=== PATIENT | male | born 1940 | race Caucasian/White ===

== ENCOUNTER 2023-06-02 08:46 | Inpatient (IN) ==
--- NOTE | 2023-06-02 08:56 | EKG ---
Test Reason : dyspnea Blood Pressure : */* mmHG Vent. Rate : 67 BPM Atrial Rate : * BPM P-R Int : * ms QRS Dur : 98 ms QT Int : 440 ms P-R-T Axes : * 15 233 degrees QTc Int : 464 ms Atrial fibrillation with occasional ventricular-paced complexes Prolonged QT Abnormal ECG No previous ECGs available Confirmed by Lawson Mcdermott ([id number]) on 06/02/2023 11:43:33 AM Referred By: Confirmed By: Lawson Mcdermott
[2023-06-02 09:18] VITALS: BMI 31.5
[2023-06-02 09:45] LABS: BILIRUBIN,URINE NEGATIVE (NEGATIVE); BLOOD/HEMOGLOBIN,URINE 1+ (NEGATIVE); GLUCOSE, URINE 2+ (NEGATIVE); KETONES,URINE NEGATIVE (NEGATIVE); LEUKOCYTE ESTERASE ,URINE NEGATIVE (NEGATIVE); NITRITES,URINE NEGATIVE (NEGATIVE); PROTEIN,URINE 1+ (NEGATIVE); UROBILINOGEN,URINE NORMAL (NORMAL)
[2023-06-02 09:57] LABS: APPEARANCE,URINE CLEAR (CLEAR); COLOR,URINE YELLOW (YELLOW)
[2023-06-02 09:58] LABS: RBC,URINE 0-2 /HPF (0-3)
[2023-06-02 09:59] LABS: BACTERIA,URINE NEGATIVE /HPF (NEGATIVE); SQUAMOUS EPITHELIAL CELL,UR RARE /HPF (NEGATIVE)
[2023-06-02 10:36] LABS: BASOPHILS % (AUTO) 0.5 % (0.2-1.0); EOSINOPHILS # (AUTO) 0.2 x10^3/uL (0.0-0.2); EOSINOPHILS % (AUTO) 2.9 % (0.9-2.9); HEMOGLOBIN 11.1 g/dL (13.5-18.0); LYMPHOCYTES # (AUTO) 0.9 X10^3/uL (1.3-2.9); LYMPHOCYTES % (AUTO) 11.6 % (21.0-51.0); MEAN CORPUSCULAR HEMOGLOBIN 30.8 pg (27.0-34.0); MEAN CORPUSCULAR HGB CONC 33.7 g/dL (33.0-35.0); MEAN CORPUSCULAR VOLUME 91.3 fL (80.0-100.0); MEAN PLATELET VOLUME 9.3 fL (7.4-11.0); MONOCYTES # (AUTO) 0.9 x10^3/uL (0.3-0.8); MONOCYTES % (AUTO) 11.6 % (0.0-13.0); NEUTROPHILS # (AUTO) 5.8 x10^3/uL (2.2-4.8); NEUTROPHILS % (AUTO) 73.4 % (42.0-75.0); PLATELET COUNT 113 X10^3/uL (150.0-450.0); RED BLOOD COUNT 3.61 X10^6/uL (4.7-6.0); RED CELL DISTRIBUTION WIDTH 14.6 % (11.6-16.5); WHITE BLOOD COUNT 7.9 X10^3/uL (3.6-10.0)
--- NOTE | 2023-06-02 10:43 | DR.AMS ---
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 Pt having increased incidents of falling, wheezing, coughing more but has been treated with breathing tx at home. Diarrhea started this AM around 0, pt states he feels weak No c/o CP, other pain, n/v Self Treatment fo Chief Complaint: these isssues started on Friday morning. Pt eating and drinking adequately per pt report COVID-19 Coronavirus risk:travel/contact w/high risk person: No Has patient experienced Coronavirus symptoms: Yes Coronavirus symptoms experienced: Coughing and Shortness of Breath Source History Provided: Patient, Family Member and EMS Mode of Arrival Mode of Arrival: EMS Timing Onset of Chief Complaint: 06/01/23 PMH PMH Past Medical History: Yes Past Medical History: Coronary Artery Disease, Diabetes, Dyslipidemia, Hypertens ion, Hypothyroidism, [place] and Renal Disease Past Medical History Comment: Sheila Past Surgical History: Yes Surgical History: CABG/Valve Surgery and Cholecystectomy Past Surgical History Comment: pacemaker/defib Family History History of Family Medical Conditions: Yes Family Medical History: [place], Coronary Artery Disease and Hypertension Social History Does patient currently use any type of tobacco product: No Have you used tobacco products in the last 12 months: No Type of Tobacco Use: None Does any household member use tobacco: No Alcohol Use: None Do you use any recreational Drugs:: No Lives With: Spouse Lives Where: Home Travel Risk Coronavirus risk:travel/contact w/high risk person: No Has patient experienced Coronavirus symptoms: Yes Coronavirus symptoms experienced: Coughing and Shortness of Breath Infectious screening In the last 2 months have you had wt loss of >10#?: NO Have you had fever, night sweats or hemotysis?: No Have you traveled outside the country in the last 6 months?: No Isolation: Standard PE Vitals Vital Signs: Temp Pulse Resp BP Pulse Ox O2 Del Method 06/02/23 14:15 69 16 100 06/02/23 14:04 79 16 98 06/02/23 13:45 68 21 99 06/02/23 13:31 169/76 06/02/23 13:31 169/76 06/02/23 13:31 169/76 06/02/23 13:31 68 25 H 99 06/02/23 13:30 68 21 99 06/02/23 13:15 68 24 99 06/02/23 13:01 71 19 98 06/02/23 13:01 161/76 06/02/23 13:00 71 19 98 06/02/23 12:45 68 14 99 06/02/23 12:31 69 17 99 06/02/23 12:31 177/81 06/02/23 12:30 69 19 99 06/02/23 12:15 68 20 06/02/23 12:03 69 26 H 98 06/02/23 12:03 194/92 06/02/23 12:00 71 21 99 06/02/23 11:45 68 16 100 06/02/23 11:31 68 26 H 100 06/02/23 11:31 166/79 06/02/23 11:30 69 20 97 06/02/23 11:16 68 21 98 06/02/23 11:16 192/66 06/02/23 11:15 69 18 98 06/02/23 11:01 68 19 100 06/02/23 11:00 68 16 100 06/02/23 10:45 68 19 97 06/02/23 10:32 68 13 98 06/02/23 10:31 166/78 06/02/23 10:31 166/78 06/02/23 10:29 68 14 98 06/02/23 10:15 68 19 99 06/02/23 10:01 69 18 100 06/02/23 10:01 189/82 06/02/23 10:00 69 22 99 06/02/23 09:45 68 25 H 98 06/02/23 09:35 67 27 H 97 06/02/23 09:35 176/79 06/02/23 09:30 67 20 99 06/02/23 09:15 67 26 H 97 06/02/23 09:12 68 23 98 06/02/23 08:47 98.7 F 78 19 151/77 98 Room Air ROR Labs Reviewed 06/02/23 09:10 06/02/23 09:10 Laboratory: WBC 7.9 X10^3/uL (3.6-10.0) 06/02/23 09:10 RBC 3.61 X10^6/uL (4.7-6.0) L 06/02/23 09:10 Hgb 11.1 g/dL (13.5-18.0) L 06/02/23 09:10 Hct 33.0 % (42.0-54.0) L 06/02/23 09:10 MCV 91.3 fL (80.0-100.0) 06/02/23 09:10 MCH 30.8 pg (27.0-34.0) 06/02/23 09:10 MCHC 33.7 g/dL (33.0-35.0) 06/02/23 09:10 RDW 14.6 % (11.6-16.5) 06/02/23 09:10 Plt Count 113 X10^3/uL (150.0-450.0) L 06/02/23 09:10 MPV 9.3 fL (7.4-11.0) 06/02/23 09:10 Neut % (Auto) 73.4 % (42.0-75.0) 06/02/23 09:10 Lymph % (Auto) 11.6 % (21.0-51.0) L 06/02/23 09:10 [place] % (Auto) 11.6 % (0.0-13.0) 06/02/23 09:10 Eos % (Auto) 2.9 % (0.9-2.9) 06/02/23 09:10 Baso % (Auto) 0.5 % (0.2-1.0) 06/02/23 09:10 Neut # (Auto) 5.8 x10^3/uL (2.2-4.8) H 06/02/23 09:10 Lymph # (Auto) 0.9 X10^3/uL (1.3-2.9) L 06/02/23 09:10 [place] # (Auto) 0.9 x10^3/uL (0.3-0.8) H 06/02/23 09:10 Eos # (Auto) 0.2 x10^3/uL (0.0-0.2) 06/02/23 09:10 Baso # (Auto) 0.0 X10^3/uL (0.0-0.1) 06/02/23 09:10 Absolute Nucleated RBC 0.1 /100WBC 06/02/23 09:10 Sodium 136 mmol/L (136-145) 06/02/23 09:10 Corrected Sodium 139 mmol/L (136-145) 06/02/23 09:10 Potassium 3.9 mmol/L (3.5-5.1) 06/02/23 09:10 Chloride 99 mmol/L (98-107) 06/02/23 09:10 Carbon Dioxide 31.5 mmol/L (21-32) 06/02/23 09:10 BUN 21 mg/dL (7-18) H 06/02/23 09:10 Creatinine 1.50 mg/dL (0.70-1.30) H 06/02/23 09:10 Est GFR (MDRD) Af Amer 57 (>60) L 06/02/23 09:10 Est GFR (MDRD) Non-Af 47 (>60) L 06/02/23 09:10 Glucose 213 mg/dL (65-99) H 06/02/23 09:10 Calcium 7.8 mg/dL (8.5-10.1) L 06/02/23 09:10 Corrected Calcium TNP 06/02/23 09:10 Total Bilirubin 0.60 mg/dL (0.2-1.0) 06/02/23 09:10 AST 31 Units/L (15-37) 06/02/23 09:10 ALT 25 Units/L (12-78) 06/02/23 09:10 Alkaline Phosphatase 86 Units/L (46-116) 06/02/23 09:10 Creatine Kinase 425 Units/L (39-308) H 06/02/23 09:10 Troponin I High Sens 52.5 ng/L (4.0-60.0) 06/02/23 12:00 B-Natriuretic Peptide 702 pg/mL (0-79) H 06/02/23 09:10 Total Protein 6.4 g/dL (6.4-8.2) 06/02/23 09:10 Albumin 3.4 g/dL (3.4-5.0) 06/02/23 09:10 Globulin 3.0 g/dL (2.5-4.5) 06/02/23 09:10 Albumin/Globulin Ratio 1.1 Ratio (1.1-2.1) 06/02/23 09:10 Specimen Type Clean catch urine 06/02/23 09:36 Urine Color Yellow (YELLOW) 06/02/23 09:36 Urine Appearance Clear (CLEAR) 06/02/23 09:36 Urine pH 6.0 (5.0 - 8.0) 06/02/23 09:36 Ur Specific [place] 1.010 (1.000-1.030) 06/02/23 09:36 Urine Protein 1+ (NEGATIVE) 06/02/23 09:36 Urine Glucose (UA) 2+ (NEGATIVE) 06/02/23 09:36 Urine Ketones Negative (NEGATIVE) 06/02/23 09:36 Urine Blood 1+ (NEGATIVE) 06/02/23 09:36 Urine Nitrite Negative (NEGATIVE) 06/02/23 09:36 Urine Bilirubin Negative (NEGATIVE) 06/02/23 09:36 Urine Urobilinogen Normal (NORMAL) 06/02/23 09:36 Ur Leukocyte Esterase Negative (NEGATIVE) 06/02/23 09:36 Urine RBC 0-2 /HPF (0-3) 06/02/23 09:36 Urine WBC None seen /HPF (0-5) 06/02/23 09:36 Ur Squamous Epith Cells Rare /HPF (NEGATIVE) 06/02/23 09:36 Urine Bacteria Negative /HPF (NEGATIVE) 06/02/23 09:36 Ur Culture Indicated? No/not indicated 06/02/23 09:36 Opioid Opioid Risk Tool Age (Seven box if 16-45): No History of Preadolescent Sexual Abuse: No Total: 0 Total Score Risk Category: Low Risk Copyright: [employer] predicting aberrant behaviors Discharge Plan Discharge Plan Patient Disposition: 01 HOME, SELF-CARE Condition: Stable Orders to Discharge Patient Discharge Orders: Transfer (Routine); Ordered 06/02/23 Ordered By: ETTA SOLORIO
[2023-06-02 11:11] LABS: ALANINE AMINOTRANSFERASE 25 Units/L (12-78); ALBUMIN 3.4 g/dL (3.4-5.0); ALKALINE PHOSPHATASE 86 Units/L (46-116); ASPARTATE AMINO TRANSFERASE 31 Units/L (15-37); BLOOD UREA NITROGEN 21 mg/dL (7-18); CALCIUM 7.8 mg/dL (8.5-10.1); CARBON DIOXIDE 31.5 mmol/L (21-32); CHLORIDE 99 mmol/L (98-107); COR NA(FOR HYPERGLY) 139 mmol/L (136-145); CREATINE KINASE 425 Units/L (39-308); GLUCOSE 213 mg/dL (65-99); POTASSIUM 3.9 mmol/L (3.5-5.1); SODIUM 136 mmol/L (136-145); TOTAL PROTEIN 6.4 g/dL (6.4-8.2); eGFR NON BLACK RACES 47 (>60)
[2023-06-02] MEDS ORDERED: LASIX IVP ONE (13:05)
[2023-06-02] MEDS ORDERED: LASIX ONE (13:46)
--- NOTE | 2023-06-02 13:48 | RAD ---
EXAM:Portable AP chestHISTORY:Short of breathCOMPARISON:Report only no image September 07, 2016FINDINGS:Mild cardiomegaly with sternal wires and AICD. The lungs and pleural spaces are clear. There is no evidence for active inflammatory disease or CHF.IMPRESSION:Cardiac prominence; no acute findings.THIS IS AN ELECTRONICALLY VERIFIED FINAL MNUGUE2206/02/2023 1:35 PM - Electronically signed by Frank Foley MD
--- NOTE | 2023-06-02 13:52 | DR.CONSULT ---
CONSULT Consultation for Day of: Date: 06/02/23 Chief Complaint Chief Complaint: sob/cough/hallucinations/diarrhea Allergies Allergies Allergy/AdvReac Type Severity Reaction Status Date / Time codeine Allergy Verified 06/02/23 09:21 lidocaine Allergy Verified 06/02/23 09:21 History of Present Illness History of Present Illness: 83 yo male- know him well- s/p cabg years ago- has PAFIB ( 50% down to 20% with adding amiodorone per pacer- has watchman as falling/no doca- recent cath last week showed patnet de la o to lad, patent svg to diag, [place] rca/cmflx ok, ef 40-45%- lvedvp 23- he was changed from arb to entresto- 2 days after: fell ( did before), bp high, diarrrhea , sob/cough- no f/c- in er: rhythm: nsr,occ v paced, some af- cxr: no pna- labs: elevated trop but f/u normal- bnp elelvated,cr 1.5, wbc 11k Past Medical History Past Medical History: Coronary Artery Disease, Diabetes, Dyslipidemia, Hyperte nsion, Hypothyroidism, [place] and Renal Disease Past Surgical History Surgical History: CABG/Valve Surgery and Cholecystectomy Family History Family Medical History: [place], Coronary Artery Disease and Hypertension Social History Does patient currently use any type of tobacco product: No Have you used tobacco products in the last 12 months: No Type of Tobacco Use: None Does any household member use tobacco: No Alcohol Use: None Medications Home Medications: codeine Allergy (Verified 06/02/23 09:21) lidocaine Allergy (Verified 06/02/23 09:21) CONTINUE taking the following medications sacubitril 24 mg-valsartan 26 mg tablet (Entresto) 1 tab PO BID 06/02/23 [History] Physical Exam Vital Signs: Vital Signs Temperature 98.7 F Pulse Rate 71 Pulse Rate 71 Pulse Rate 68 Pulse Rate 69 Pulse Rate 69 Pulse Rate 68 Pulse Rate 69 Pulse Rate 71 Pulse Rate 68 Pulse Rate 68 Pulse Rate 69 Pulse Rate 68 Pulse Rate 69 Pulse Rate 68 Pulse Rate 68 Pulse Rate 68 Pulse Rate 68 Pulse Rate 68 Pulse Rate 68 Pulse Rate 69 Pulse Rate 69 Pulse Rate 68 Pulse Rate 67 Pulse Rate 67 Pulse Rate 67 Pulse Rate 68 Pulse Rate 78 Respiratory Rate 19 Respiratory Rate 19 Respiratory Rate 14 Respiratory Rate 17 Respiratory Rate 19 Respiratory Rate 20 Respiratory Rate 26 Respiratory Rate 21 Respiratory Rate 16 Respiratory Rate 26 Respiratory Rate 20 Respiratory Rate 21 Respiratory Rate 18 Respiratory Rate 19 Respiratory Rate 16 Respiratory Rate 19 Respiratory Rate 13 Respiratory Rate 14 Respiratory Rate 19 Respiratory Rate 18 Respiratory Rate 22 Respiratory Rate 25 Respiratory Rate 27 Respiratory Rate 20 Respiratory Rate 26 Respiratory Rate 23 Respiratory Rate 19 Blood Pressure 161/76 Blood Pressure 177/81 Blood Pressure 194/92 Blood Pressure 166/79 Blood Pressure 192/66 Blood Pressure 166/78 Blood Pressure 166/78 Blood Pressure 189/82 Blood Pressure 176/79 Blood Pressure 151/77 O2 Sat by Pulse Oximetry 98 O2 Sat by Pulse Oximetry 98 O2 Sat by Pulse Oximetry 99 O2 Sat by Pulse Oximetry 99 O2 Sat by Pulse Oximetry 99 O2 Sat by Pulse Oximetry 98 O2 Sat by Pulse Oximetry 99 O2 Sat by Pulse Oximetry 100 O2 Sat by Pulse Oximetry 100 O2 Sat by Pulse Oximetry 97 O2 Sat by Pulse Oximetry 98 O2 Sat by Pulse Oximetry 98 O2 Sat by Pulse Oximetry 100 O2 Sat by Pulse Oximetry 100 O2 Sat by Pulse Oximetry 97 O2 Sat by Pulse Oximetry 98 O2 Sat by Pulse Oximetry 98 O2 Sat by Pulse Oximetry 99 O2 Sat by Pulse Oximetry 100 O2 Sat by Pulse Oximetry 99 O2 Sat by Pulse Oximetry 98 O2 Sat by Pulse Oximetry 97 O2 Sat by Pulse Oximetry 99 O2 Sat by Pulse Oximetry 97 O2 Sat by Pulse Oximetry 98 O2 Sat by Pulse Oximetry 98 alert cough mild sob elevated jvd, lungs: b rhonchi/rales, 1-2 plus edema Plan (1) Atrial fibrillation: Status: None Narrative Support Text: cont amio- no doac as has watchman (2) CAD (coronary artery disease): Status: None Narrative Support Text: cath last week with good revascularization (3) Essential hypertension: Status: None Narrative Support Text: contributing to chf- will try to continue entresto to maybe in push it if he gets better when out of chf (4) CHF (congestive heart failure): Status: Acute Narrative Support Text: ? if cath/dye tipped him over Plan: iv lasix in er- resume current meds ( coreg/entresto/etc) (5) Hallucinations: Status: Acute Narrative Support Text: ? related to sedation from cath- r/o infection
--- NOTE | 2023-06-02 14:56 | CT ---
EXAM:BRAIN W/O CONHISTORY:AMS RECENT FALL;COMPARISON:None available.TECHNIQUE:Multiple axial images of the brain were obtained from the skull base to the vertex without administration of IV contrast. Dose reduction techniques including Automated Exposure Control (AEC) and adjustment of mA and kV were utilized.FINDINGS:No acute intraparenchymal hemorrhage or mass can be identified. No extra-axial fluid collections are seen. No alteration in the attenuation of the brain parenchyma can be identified to suggest acute or subacute ischemic change. Scattered small-vessel ischemic changes and chronic area area of encephalomalacia noted in the right frontoparietal lobe. Age-appropriate atrophic changes are also seen. The ventricular system is symmetric and nondilated. The extracranial structures appear unremarkable.IMPRESSION:1. No acute intracranial process can be identified.THIS IS AN ELECTRONICALLY VERIFIED FINAL FEBFVE3706/02/2023 2:52 PM - Electronically signed by Kaiden Raymundo MD
[2023-06-02 17:19] LABS: CALCIUM 8.3 mg/dL (8.5-10.1); CREATININE 1.46 mg/dL (0.70-1.30)
[2023-06-02 18:20] LABS: ABG BASE EXCESS 8.7 mmol/L (-2.0-2.0)
[2023-06-02 18:21] LABS: ABG ALLEN TEST POS; ABG HCO3 32.8 mmol/L (22-26)
[2023-06-02] MEDS: ENTRESTO 24/26 MG TABLET PO SCH (20:29)
[2023-06-02] MEDS: ZOCOR TAB 20 MG PO SCH (20:29)
[2023-06-03 05:36] LABS: BASOPHILS % (AUTO) 0.4 % (0.2-1.0); EOSINOPHILS # (AUTO) 0.3 x10^3/uL (0.0-0.2); EOSINOPHILS % (AUTO) 3.9 % (0.9-2.9); HEMATOCRIT 36.2 % (42.0-54.0); LYMPHOCYTES # (AUTO) 1.2 X10^3/uL (1.3-2.9); LYMPHOCYTES % (AUTO) 13.6 % (21.0-51.0); MEAN CORPUSCULAR HEMOGLOBIN 30.3 pg (27.0-34.0); MEAN CORPUSCULAR HGB CONC 33.1 g/dL (33.0-35.0); MEAN CORPUSCULAR VOLUME 91.6 fL (80.0-100.0); MONOCYTES # (AUTO) 1.1 x10^3/uL (0.3-0.8); MONOCYTES % (AUTO) 12.2 % (0.0-13.0); NEUTROPHILS # (AUTO) 6.2 x10^3/uL (2.2-4.8); NEUTROPHILS % (AUTO) 69.9 % (42.0-75.0); PLATELET COUNT 143 X10^3/uL (150.0-450.0); RED BLOOD COUNT 3.95 X10^6/uL (4.7-6.0); RED CELL DISTRIBUTION WIDTH 14.7 % (11.6-16.5); WHITE BLOOD COUNT 8.9 X10^3/uL (3.6-10.0)
[2023-06-03 05:45] LABS: ALANINE AMINOTRANSFERASE 27 Units/L (12-78); ALBUMIN 3.4 g/dL (3.4-5.0); ALKALINE PHOSPHATASE 89 Units/L (46-116); ASPARTATE AMINO TRANSFERASE 30 Units/L (15-37); BLOOD UREA NITROGEN 18 mg/dL (7-18); CALCIUM 8.3 mg/dL (8.5-10.1); CARBON DIOXIDE 31.1 mmol/L (21-32); CHLORIDE 100 mmol/L (98-107); COR NA(FOR HYPERGLY) 143 mmol/L (136-145); CREATININE 1.47 mg/dL (0.70-1.30); GLUCOSE 235 mg/dL (65-99); POTASSIUM 3.4 mmol/L (3.5-5.1); SODIUM 140 mmol/L (136-145); TOTAL PROTEIN 6.4 g/dL (6.4-8.2); eGFR NON BLACK RACES 48 (>60)
[2023-06-03] MEDS: SYNTHROID 100 mcg TAB PO SCH (05:50)
[2023-06-03] MEDS ORDERED: CONSULT PHARMACY - POTASSIUM & MAGNESIUM XX SCH (07:00)
--- NOTE | 2023-06-03 07:31 | RAD ---
EXAM:CHEST, 1 VIEWHISTORY:CHF EXACERBATION ;COMPARISON:06/02/2023.TECHNIQUE:AP view of the chestFINDINGS:Left chest wall pacemaker with leads in good position. Post median sternotomy and CABG. Cardiac silhouette is mildly enlarged. Mediastinal contours appear normal. No consolidation or segmental lung collapse. No definite pleural effusion or pneumothorax.IMPRESSION:Mild cardiomegaly. No acute pulmonary process.THIS IS AN ELECTRONICALLY VERIFIED FINAL OCCFKA5606/03/2023 7:28 AM - Electronically signed by Daniel Sanches MD
--- NOTE | 2023-06-03 08:07 | NOTE.SOAP ---
Soap Note Note for Day of Date of Exam: 06/03/23 Subjective Data Subjective Data: just woke up- states breathing ok- was on metoprolol succ 100 qd- will hold until wheezing gone! Objective Data Objective Data: p68 bp 134/67 no fevers i/o: -1000 can hear wheezing lungs: few rales/exp wheeze edema: improved k3.4 getting K\ getting nebs too Assessment Assessment: chf/wheezing/low K Plan Plan: lasix iv again- K supplementation/ cont resp tx/ hold bb until wheezing resolved
[2023-06-03] MEDS ORDERED: K-DUR TAB 20 MEQ PO SCH (09:00)
[2023-06-03] MEDS ORDERED: JANUVIA PO SCH (09:00)
[2023-06-03] MEDS ORDERED: LASIX IVP ONE (09:00)
[2023-06-03] MEDS: PROVENTIL NEB TX 0.083% 2.5MG/ 3ML NEB PRN ×2 (09:26→13:44)
[2023-06-03] MEDS: ASPIRIN EC 81 MG PO SCH (10:07)
[2023-06-03] MEDS: FLOMAX PO SCH (10:07)
[2023-06-03] MEDS: ENTRESTO 24/26 MG TABLET PO SCH ×2 (10:08→21:16)
[2023-06-03] MEDS: LOVENOX INJ 40 MG SYR SC SCH (10:09)
[2023-06-03] MEDS: CORDARONE TAB 200 MG PO SCH (10:23)
[2023-06-03] MEDS: NovoLIN R (or HumuLIN R) SUBCUT PRN ×2 (12:43→21:19)
[2023-06-03] MEDS: ROCEPHIN VIAL 1 GRAM 1 G in NS 100 ML IV 100 ML IV SCH (14:26)
[2023-06-03] MEDS: ROBITUSSIN DM PO SCH ×2 (16:32→21:17)
[2023-06-03] MEDS: PROVENTIL NEB TX 0.083% 2.5MG/ 3ML NEB SCH ×2 (17:49→20:05)
[2023-06-03] MEDS: ZOCOR TAB 20 MG PO SCH (21:17)
[2023-06-04] MEDS: SYNTHROID 100 mcg TAB PO SCH (05:31)
[2023-06-04] MEDS: NovoLIN R (or HumuLIN R) SUBCUT PRN ×4 (05:34→20:44)
[2023-06-04 05:43] LABS: BASOPHILS % (AUTO) 0.5 % (0.2-1.0); EOSINOPHILS # (AUTO) 0.1 x10^3/uL (0.0-0.2); EOSINOPHILS % (AUTO) 0.6 % (0.9-2.9); HEMATOCRIT 32.3 % (42.0-54.0); HEMOGLOBIN 10.8 g/dL (13.5-18.0); LYMPHOCYTES # (AUTO) 1.1 X10^3/uL (1.3-2.9); LYMPHOCYTES % (AUTO) 12.3 % (21.0-51.0); MEAN CORPUSCULAR HEMOGLOBIN 30.6 pg (27.0-34.0); MEAN CORPUSCULAR HGB CONC 33.3 g/dL (33.0-35.0); MEAN CORPUSCULAR VOLUME 91.8 fL (80.0-100.0); MEAN PLATELET VOLUME 8.6 fL (7.4-11.0); MONOCYTES % (AUTO) 11.5 % (0.0-13.0); NEUTROPHILS # (AUTO) 6.7 x10^3/uL (2.2-4.8); NEUTROPHILS % (AUTO) 75.1 % (42.0-75.0); PLATELET COUNT 134 X10^3/uL (150.0-450.0); RED BLOOD COUNT 3.52 X10^6/uL (4.7-6.0); RED CELL DISTRIBUTION WIDTH 14.5 % (11.6-16.5); WHITE BLOOD COUNT 8.9 X10^3/uL (3.6-10.0)
[2023-06-04 05:57] LABS: CALCIUM 7.9 mg/dL (8.5-10.1); CARBON DIOXIDE 31.3 mmol/L (21-32); COR CA(FOR HYPOALB) 8.7 mg/dL (8.5-10.1); CREATININE 2.47 mg/dL (0.70-1.30); POTASSIUM 3.5 mmol/L (3.5-5.1); TOTAL PROTEIN 5.7 g/dL (6.4-8.2)
[2023-06-04] MEDS ORDERED: CONSULT PHARMACY - POTASSIUM & MAGNESIUM XX SCH (07:00)
--- NOTE | 2023-06-04 08:14 | RAD ---
EXAM:Portable AP chestHISTORY:CHF wheezingCOMPARISON:June 03, 2023FINDINGS:Heart size is unchanged with AICD. The lungs and pleural spaces are clear of active process. There is no evidence for developing pneumonia, CHF/edema or pleural effusion.IMPRESSION:No change.THIS IS AN ELECTRONICALLY VERIFIED FINAL [id number]/04/2023 8:12 AM - Electronically signed by Frank Foley MD
[2023-06-04] MEDS ORDERED: MICRO K EXTEN CAP 10 MEQ PO SCH (09:00)
[2023-06-04] MEDS: PROVENTIL NEB TX 0.083% 2.5MG/ 3ML NEB SCH ×4 (09:03→21:25)
[2023-06-04] MEDS: ROCEPHIN VIAL 1 GRAM 1 G in NS 100 ML IV 100 ML IV SCH (09:38)
[2023-06-04] MEDS: ROBITUSSIN DM PO SCH ×4 (09:42→21:12)
[2023-06-04] MEDS: FLOMAX PO SCH (09:42)
[2023-06-04] MEDS: ASPIRIN EC 81 MG PO SCH (09:43)
[2023-06-04] MEDS: JANUVIA PO SCH (09:44)
[2023-06-04] MEDS: MAG-OX TAB PO SCH (09:45)
[2023-06-04] MEDS: LOVENOX INJ 40 MG SYR SC SCH (09:46)
[2023-06-04] MEDS ORDERED: SOLU-Medrol 40 MG VIAL IVP ONE (09:47)
[2023-06-04] MEDS: CORDARONE TAB 200 MG PO SCH (10:33)
[2023-06-04] MEDS: ENTRESTO 24/26 MG TABLET PO SCH ×3 (11:02→20:24)
[2023-06-04] MEDS: NS 1,000 ML IV 1,000 ML IV SCH (11:04)
--- NOTE | 2023-06-04 13:29 | NOTE.SOAP ---
Soap Note Note for Day of Date of Exam: 06/04/23 Subjective Data Subjective Data: sob/wheezing improving Objective Data Objective Data: [id number] p 86 i/o -1600 lungs- sound much better/minimal wheeze edema:minimal CR 1.47 to 2.47 with diuresis ( no lasix today) Assessment Assessment: bronchitis/ chf/ now bump in creatinine with diureisis Plan Plan: antibiotics/nebs- if cr stable or improved in am- ok to go and i will see friday- no more iv lasix for now- cont entresto and resume bb in am if minimal wheezing
[2023-06-04] MEDS: ZOCOR TAB 20 MG PO SCH (20:24)
[2023-06-05] MEDS: NS 1,000 ML IV 1,000 ML IV SCH ×2 (05:24→13:48)
[2023-06-05] MEDS: NovoLIN R (or HumuLIN R) SUBCUT PRN ×3 (06:04→21:02)
[2023-06-05] MEDS: SYNTHROID 100 mcg TAB PO SCH (06:04)
[2023-06-05 06:06] LABS: BASOPHILS % (AUTO) 0.2 % (0.2-1.0); EOSINOPHILS % (AUTO) 0.1 % (0.9-2.9); HEMATOCRIT 33.8 % (42.0-54.0); HEMOGLOBIN 11.2 g/dL (13.5-18.0); LYMPHOCYTES # (AUTO) 0.6 X10^3/uL (1.3-2.9); LYMPHOCYTES % (AUTO) 5.9 % (21.0-51.0); MEAN CORPUSCULAR HEMOGLOBIN 30.2 pg (27.0-34.0); MEAN CORPUSCULAR HGB CONC 33.3 g/dL (33.0-35.0); MEAN CORPUSCULAR VOLUME 90.8 fL (80.0-100.0); MEAN PLATELET VOLUME 8.7 fL (7.4-11.0); MONOCYTES # (AUTO) 0.5 x10^3/uL (0.3-0.8); MONOCYTES % (AUTO) 4.9 % (0.0-13.0); NEUTROPHILS # (AUTO) 9.5 x10^3/uL (2.2-4.8); NEUTROPHILS % (AUTO) 88.9 % (42.0-75.0); PLATELET COUNT 145 X10^3/uL (150.0-450.0); RED BLOOD COUNT 3.72 X10^6/uL (4.7-6.0); RED CELL DISTRIBUTION WIDTH 14.6 % (11.6-16.5); WHITE BLOOD COUNT 10.7 X10^3/uL (3.6-10.0)
--- NOTE | 2023-06-05 06:17 | RAD ---
EXAM:Portable AP chestHISTORY:CHF cough wheezeCOMPARISON:June 04, 2023FINDINGS:Mild stable cardiomegaly with sternal wires and pacing device. No definite pulmonary infiltrate, edema, atelectasis or pleural fluid. Appearance of the pulmonary vasculature does not suggest significant CHF.IMPRESSION:No change.THIS IS AN ELECTRONICALLY VERIFIED FINAL TWSDFI2006/05/2023 6:13 AM - Electronically signed by Frank Foley MD
[2023-06-05 06:19] LABS: ALBUMIN 3.2 g/dL (3.4-5.0); CALCIUM 8.6 mg/dL (8.5-10.1); CARBON DIOXIDE 28.5 mmol/L (21-32); COR CA(FOR HYPOALB) 9.2 mg/dL (8.5-10.1); CREATININE 1.74 mg/dL (0.70-1.30); MAGNESIUM 2.1 mg/dL (2.0-2.9); POTASSIUM 3.8 mmol/L (3.5-5.1); TOTAL PROTEIN 6.2 g/dL (6.4-8.2)
[2023-06-05] MEDS ORDERED: CONSULT PHARMACY - POTASSIUM & MAGNESIUM XX SCH (07:00)
[2023-06-05] MEDS: PROVENTIL NEB TX 0.083% 2.5MG/ 3ML NEB SCH (08:12)
[2023-06-05] MEDS ORDERED: TOPROL XL PO ONE (08:12)
[2023-06-05] MEDS ORDERED: TOPROL XL PO SCH (09:00)
[2023-06-05] MEDS ORDERED: MICRO K EXTEN CAP 10 MEQ PO SCH (09:00)
[2023-06-05] MEDS: ROBITUSSIN DM PO SCH ×4 (09:39→20:14)
[2023-06-05] MEDS: ROCEPHIN VIAL 1 GRAM 1 G in NS 100 ML IV 100 ML IV SCH (09:39)
[2023-06-05] MEDS: LOVENOX INJ 40 MG SYR SC SCH (09:39)
[2023-06-05] MEDS: ENTRESTO 24/26 MG TABLET PO SCH ×2 (09:40→20:15)
[2023-06-05] MEDS: JANUVIA PO SCH (09:40)
[2023-06-05] MEDS: CORDARONE TAB 200 MG PO SCH (09:40)
[2023-06-05] MEDS: FLOMAX PO SCH (09:40)
[2023-06-05] MEDS: ASPIRIN EC 81 MG PO SCH (09:40)
[2023-06-05 10:14] VITALS: RESP 20
[2023-06-05] MEDS ORDERED: MAG-OX TAB ONE (10:33)
[2023-06-05] MEDS: MAG-OX TAB PO SCH (10:37)
--- NOTE | 2023-06-05 10:59 | PCM.PROG ---
Progress Note Progress Note for Day of Date of Exam: 06/05/23 Subjective Subjective: Patient seen at bedside, no acute events overnight. He states he feels slightly better. He still has a lot of cough and some dyspnea on exertion. He is currently being treated for bronchitis/CHF exacerbation and SHAREE. Cardiology has also been following. His lasix was stopped due to worsening renal function. His Cr has improved today. Labs/imaging reviewed -Hgb 11.2 BUN/Cr 26/1.74 Glucose 322 BNP 646 -Blood Cx: neg -CXR: no acute changes Plan: Continue IV Rocephin, add Doxycyline. Continue to hold lasix and BB. Change to duonebs and pulmicort. Add prednisone 40 mg daily. Start Lantus 10 units daily. Continue SSI and other home medications. Hold nephrotoxic medications. IS as tolerated. Monitor AM labs/imaging. Past Medical Family Social History Allergies: Allergies codeine Allergy (Verified 06/02/23 09:21) lidocaine Allergy (Verified 06/02/23 09:21) Vital Signs and I&O's Vital Signs: Vital Signs Temperature 98.3 F Temperature 98.3 F Pulse Rate [Brachial] 94 Pulse Rate [Brachial] 83 Pulse Rate 83 Respiratory Rate 20 Respiratory Rate 18 Blood Pressure [Right Arm] 115/79 Blood Pressure [Right Arm] 158/65 O2 Sat by Pulse Oximetry 97 O2 Sat by Pulse Oximetry 94 O2 Sat by Pulse Oximetry 96 Intake and Output: Intake & Output 06/02/23 06/03/23 06/04/23 06/05/23 23:59 23:59 23:59 23:59 Intake Total 50 / 50 962 / 962 1370 / 1370 535 / 535 Output Total 1080 / 1080 1400 / 1400 725 / 725 Balance -1030 / -1030 -438 / -438 645 / 645 535 / 535 Physical Exam Oriented: Normal Throat: Normal Respiratory: Wheezes and Rhonchi Cardiovascular: Normal Auscultation: Bowel Sounds: Normal Palpation: Normal Tenderness: Normal Skin: Normal Musculoskeletal: Normal Psychiatric: Normal Mood Description: Calm Affect: Normal Speech Pattern: Clear Laboratory and Diagnostics 06/05/23 05:27 06/05/23 05:27 Labs: 06/02/23 18:26 Blood Blood Culture - Preliminary 06/02/23 18:20 Blood Blood Culture - Preliminary 06/02/23 20:38 Urine,Clean Catch Urine Culture - Final Laboratory WBC 10.7 X10^3/uL (3.6-10.0) H 06/05/23 05:27 RBC 3.72 X10^6/uL (4.7-6.0) L 06/05/23 05:27 Hgb 11.2 g/dL (13.5-18.0) L 06/05/23 05:27 Hct 33.8 % (42.0-54.0) L 06/05/23 05:27 MCV 90.8 fL (80.0-100.0) 06/05/23 05:27 MCH 30.2 pg (27.0-34.0) 06/05/23 05:27 MCHC 33.3 g/dL (33.0-35.0) 06/05/23 05:27 RDW 14.6 % (11.6-16.5) 06/05/23 05:27 Plt Count 145 X10^3/uL (150.0-450.0) L 06/05/23 05:27 MPV 8.7 fL (7.4-11.0) 06/05/23 05:27 Neut % (Auto) 88.9 % (42.0-75.0) H 06/05/23 05:27 Lymph % (Auto) 5.9 % (21.0-51.0) L 06/05/23 05:27 [place] % (Auto) 4.9 % (0.0-13.0) 06/05/23 05:27 Eos % (Auto) 0.1 % (0.9-2.9) L 06/05/23 05:27 Baso % (Auto) 0.2 % (0.2-1.0) 06/05/23 05:27 Neut # (Auto) 9.5 x10^3/uL (2.2-4.8) H 06/05/23 05:27 Lymph # (Auto) 0.6 X10^3/uL (1.3-2.9) L 06/05/23 05:27 [place] # (Auto) 0.5 x10^3/uL (0.3-0.8) 06/05/23 05:27 Eos # (Auto) 0.0 x10^3/uL (0.0-0.2) 06/05/23 05:27 Baso # (Auto) 0.0 X10^3/uL (0.0-0.1) 06/05/23 05:27 Absolute Nucleated RBC 0.0 /100WBC 06/05/23 05:27 Sample Site Rrad 06/02/23 18:15 ABG pH 7.500 (7.35-7.45) H 06/02/23 18:15 ABG pCO2 42.0 mmHg (35.0-45.0) 06/02/23 18:15 ABG pO2 66.0 mmHg (80.0-100.0) L 06/02/23 18:15 ABG HCO3 32.8 mmol/L (22-26) H* 06/02/23 18:15 ABG O2 Saturation 94.0 % (90-100) 06/02/23 18:15 ABG Base Excess 8.7 mmol/L (-2.0-2.0) H 06/02/23 18:15 [place] Test Pos 06/02/23 18:15 A-a Gradient 31.0 mmHg 06/02/23 18:15 FiO2 21.0 06/02/23 18:15 Blood Gas Comments Pt ara well. eb/kg 06/02/23 18:15 Sodium 137 mmol/L (136-145) 06/05/23 05:27 Corrected Sodium 142 mmol/L (136-145) 06/05/23 05:27 Potassium 3.8 mmol/L (3.5-5.1) 06/05/23 05:27 Chloride 99 mmol/L (98-107) 06/05/23 05:27 Carbon Dioxide 28.5 mmol/L (21-32) 06/05/23 05:27 BUN 26 mg/dL (7-18) H 06/05/23 05:27 Creatinine 1.74 mg/dL (0.70-1.30) H 06/05/23 05:27 Est GFR (MDRD) Af Amer 48 (>60) L 06/05/23 05:27 Est GFR (MDRD) Non-Af 40 (>60) L 06/05/23 05:27 Glucose 312 mg/dL (65-99) H 06/05/23 05:27 POC Glucose (mg/dL) 322 mg/dL (65-99) H 06/05/23 05:45 Calcium 8.6 mg/dL (8.5-10.1) 06/05/23 05:27 Corrected Calcium 9.2 mg/dL (8.5-10.1) 06/05/23 05:27 Magnesium 2.1 mg/dL (2.0-2.9) 06/05/23 05:27 Total Bilirubin 0.50 mg/dL (0.2-1.0) 06/05/23 05:27 AST 32 Units/L (15-37) 06/05/23 05:27 ALT 24 Units/L (12-78) 06/05/23 05:27 Alkaline Phosphatase 84 Units/L (46-116) 06/05/23 05:27 Creatine Kinase 425 Units/L (39-308) H 06/02/23 09:10 Troponin I High Sens 52.5 ng/L (4.0-60.0) 06/02/23 12:00 B-Natriuretic Peptide 646 pg/mL (0-79) H 06/05/23 05:27 Total Protein 6.2 g/dL (6.4-8.2) L 06/05/23 05:27 Albumin 3.2 g/dL (3.4-5.0) L 06/05/23 05:27 Globulin 3.0 g/dL (2.5-4.5) 06/05/23 05:27 Albumin/Globulin Ratio 1.1 Ratio (1.1-2.1) 06/05/23 05:27 Specimen Type Clean catch urine 06/02/23 09:36 Urine Color Yellow (YELLOW) 06/02/23 09:36 Urine Appearance Clear (CLEAR) 06/02/23 09:36 Urine pH 6.0 (5.0 - 8.0) 06/02/23 09:36 Ur Specific [place] 1.010 (1.000-1.030) 06/02/23 09:36 Urine Protein 1+ (NEGATIVE) 06/02/23 09:36 Urine Glucose (UA) 2+ (NEGATIVE) 06/02/23 09:36 Urine Ketones Negative (NEGATIVE) 06/02/23 09:36 Urine Blood 1+ (NEGATIVE) 06/02/23 09:36 Urine Nitrite Negative (NEGATIVE) 06/02/23 09:36 Urine Bilirubin Negative (NEGATIVE) 06/02/23 09:36 Urine Urobilinogen Normal (NORMAL) 06/02/23 09:36 Ur Leukocyte Esterase Negative (NEGATIVE) 06/02/23 09:36 Urine RBC 0-2 /HPF (0-3) 06/02/23 09:36 Urine WBC None seen /HPF (0-5) 06/02/23 09:36 Ur Squamous Epith Cells Rare /HPF (NEGATIVE) 06/02/23 09:36 Urine Bacteria Negative /HPF (NEGATIVE) 06/02/23 09:36 Ur Culture Indicated? No/not indicated 06/02/23 09:36 SARS-CoV-2 (PCR) Negative (NEGATIVE) 06/03/23 22:30 Influenza Type A (PCR) Negative (NEGATIVE) 06/03/23 22:30 Influenza Type B (PCR) Negative (NEGATIVE) 06/03/23 22:30 RSV (PCR) Negative (NEGATIVE) 06/03/23 22:30 Plan (1) Bronchitis: Status: Acute (2) Acute on chronic renal failure: Status: Acute Qualifiers: Acute renal failure type: unspecified Chronic kidney disease stage: unspecified stage Qualified Code(s): N17.9 - Acute kidney failure, unspecified; N18.9 - Chronic kidney disease, unspecified (3) Type 2 diabetes mellitus: Status: Acute Qualifiers: Diabetes mellitus complication status: with hyperglycemia Diabetes mellitus mcfp insulin use: with mcfp use Qualified Code(s): E11.65 - Type 2 diabetes mellitus with hyperglycemia; Z79.4 - FPC (current) use of insulin (4) CHF (congestive heart failure): Status: Acute Qualifiers: Heart failure chronicity: acute on chronic Heart failure type: un specified Qualified Code(s): I50.9 - Heart failure, unspecified (5) Atrial fibrillation: Status: None Qualifiers: Atrial fibrillation type: unspecified chronic Qualified Code(s): I48.20 - Chronic atrial fibrillation, unspecified (6) CAD (coronary artery disease): Status: None Qualifiers: Associated angina: without angina Coronary Disease-Associated Artery/Lesion type: bypass graft [place] vs. transplanted heart: [place] heart Qualified Code(s): I25.810 - Atherosclerosis of coronary artery bypass graft(s) without angina pectoris (7) Essential hypertension: Status: None
[2023-06-05] MEDS: PREDNISONE TAB 20 MG PO SCH (11:05)
[2023-06-05] MEDS: LANTUS SC SCH (11:06)
[2023-06-05] MEDS: VIBRAMYCIN PO SCH ×2 (11:19→20:15)
[2023-06-05] MEDS: PULMICORT NEB TX 0.5 MG NEB SCH ×2 (12:09→21:15)
[2023-06-05] MEDS: DUONEB 0.5 MG/3 MG (3 mL) NEB SCH ×3 (12:19→21:15)
[2023-06-05] MEDS: MILK OF MAGNESIA PO SCH (16:11)
[2023-06-05] MEDS ORDERED: SNACK - Diabetic Appropriate PO SCH (20:00)
[2023-06-05] MEDS: ZOCOR TAB 20 MG PO SCH (20:16)
[2023-06-05] MEDS ORDERED: COLACE CAP 100 MG PO SCH (21:00)
[2023-06-06] MEDS: MILK OF MAGNESIA PO SCH (05:36)
[2023-06-06] MEDS: SYNTHROID 100 mcg TAB PO SCH (05:37)
[2023-06-06] MEDS: NS 1,000 ML IV 1,000 ML IV SCH (05:39)
[2023-06-06 06:22] LABS: BASOPHILS % (AUTO) 0 % (0.2-1.0); HEMATOCRIT 32.5 % (42.0-54.0); HEMOGLOBIN 10.8 g/dL (13.5-18.0); LYMPHOCYTES # (AUTO) 0.7 X10^3/uL (1.3-2.9); MEAN CORPUSCULAR HEMOGLOBIN 30.3 pg (27.0-34.0); MEAN CORPUSCULAR HGB CONC 33.1 g/dL (33.0-35.0); MEAN CORPUSCULAR VOLUME 91.5 fL (80.0-100.0); MEAN PLATELET VOLUME 8.8 fL (7.4-11.0); MONOCYTES # (AUTO) 0.6 x10^3/uL (0.3-0.8); MONOCYTES % (AUTO) 4.8 % (0.0-13.0); NEUTROPHILS # (AUTO) 11.2 x10^3/uL (2.2-4.8); NEUTROPHILS % (AUTO) 89.2 % (42.0-75.0); PLATELET COUNT 148 X10^3/uL (150.0-450.0); RED BLOOD COUNT 3.56 X10^6/uL (4.7-6.0); WHITE BLOOD COUNT 12.5 X10^3/uL (3.6-10.0)
[2023-06-06] MEDS: NovoLIN R (or HumuLIN R) SUBCUT PRN (06:23)
[2023-06-06 06:39] LABS: ALBUMIN 3.1 g/dL (3.4-5.0); CALCIUM 8.5 mg/dL (8.5-10.1); CARBON DIOXIDE 32.1 mmol/L (21-32); COR CA(FOR HYPOALB) 9.2 mg/dL (8.5-10.1); CREATININE 1.59 mg/dL (0.70-1.30); POTASSIUM 4.6 mmol/L (3.5-5.1)
[2023-06-06] MEDS: DUONEB 0.5 MG/3 MG (3 mL) NEB SCH (09:00)
[2023-06-06] MEDS: PULMICORT NEB TX 0.5 MG NEB SCH (09:01)
[2023-06-06 09:03] VITALS: O2SAT 97
[2023-06-06] MEDS: ENTRESTO 24/26 MG TABLET PO SCH (09:07)
[2023-06-06] MEDS: CORDARONE TAB 200 MG PO SCH (09:08)
[2023-06-06] MEDS: PREDNISONE TAB 20 MG PO SCH (09:08)
[2023-06-06] MEDS: ROBITUSSIN DM PO SCH (09:08)
[2023-06-06] MEDS: FLOMAX PO SCH (09:08)
[2023-06-06] MEDS: VIBRAMYCIN PO SCH (09:08)
[2023-06-06] MEDS: ASPIRIN EC 81 MG PO SCH (09:08)
[2023-06-06] MEDS: ROCEPHIN VIAL 1 GRAM 1 G in NS 100 ML IV 100 ML IV SCH (09:09)
[2023-06-06] MEDS: LANTUS SC SCH (09:09)
[2023-06-06] MEDS: LOVENOX INJ 40 MG SYR SC SCH (09:10)
[2023-06-06] MEDS: JANUVIA PO SCH (09:10)
[2023-06-06] MEDS ORDERED: MAG-OX TAB ONE (09:19)
[2023-06-06] MEDS: MAG-OX TAB PO SCH (09:19)
[2023-06-06 11:20] VITALS: BP 180/84; PULSE 75; TEMP 98.3
--- NOTE | 2023-06-11 16:39 | W.DIS.FURT ---
Summary of Discharge Discharge Summary of Date Date of Exam: 06/06/23 Admission Date Date of Admission: 06/02/23 Admission Diagnosis Hospital Course: Mr. Villasenor is a 83-year-old male with a past medical history of CAD, CABG, atrial fibrillation, Watchman procedure, CHF, hypertension presented with upper respiratory symptoms, altered mental status after having a left heart cath. He was admitted for CHF exacerbation, SHAREE and bronchitis. He was treated with IV Lasix, nebs and antibiotics. His labs were monitored daily and electrolytes were replaced as needed. He was also started on prednisone and Pulmicort due to excessive wheezing. His respiratory panel showed rhinovirus and enterovirus. Patient was feeling better and ambulating in the room. His leg edema was also better. He has been seeing Dr. Magaña for all his cardiac issues. He was stable for discharge home with oral antibiotics and steroids. He will follow-up with PCP and cardiology as scheduled. Vital Signs: Vital Signs (72 hours) 06/03/23 11:42 06/03/23 12:00 06/03/23 16:00 Temperature 98.8 F 98.5 F Pulse Rate Pulse Rate [Brachial] 78 76 Respiratory Rate 22 20 Blood Pressure [Left Arm] 131/59 146/67 Blood Pressure [Right Arm] O2 Sat by Pulse Oximetry 93 L 97 Oxygen Delivery Method Room Air Room Air Room Air 06/03/23 16:00 06/03/23 20:05 06/03/23 20:00 Temperature 98.5 F 98.3 F Pulse Rate 105 H Pulse Rate [Brachial] 76 97 H Respiratory Rate 20 18 Blood Pressure [Left Arm] 146/67 115/53 Blood Pressure [Right Arm] O2 Sat by Pulse Oximetry 93 L 95 96 Oxygen Delivery Method Room Air 06/03/23 19:00 06/04/23 00:00 06/04/23 04:00 Temperature 98.5 F 98.3 F Pulse Rate Pulse Rate [Brachial] 81 87 Respiratory Rate 18 21 Blood Pressure [Left Arm] 117/55 136/70 Blood Pressure [Right Arm] O2 Sat by Pulse Oximetry 95 93 L Oxygen Delivery Method Room Air Room Air Room Air 06/04/23 10:20 06/04/23 08:00 06/04/23 12:00 Temperature 98.2 F 97.8 F Pulse Rate Pulse Rate [Brachial] 75 86 Respiratory Rate 22 22 Blood Pressure [Left Arm] 141/66 175/70 Blood Pressure [Right Arm] O2 Sat by Pulse Oximetry 95 94 L Oxygen Delivery Method Room Air Room Air Room Air 06/04/23 16:00 06/04/23 19:59 06/04/23 19:00 Temperature 97.3 F L 98.9 F Pulse Rate Pulse Rate [Brachial] 97 H 100 H Respiratory Rate 22 20 Blood Pressure [Left Arm] Blood Pressure [Right Arm] 153/72 142/80 O2 Sat by Pulse Oximetry 95 95 Oxygen Delivery Method Room Air Room Air 06/04/23 21:25 06/05/23 00:00 06/05/23 04:00 Temperature 99.3 F 98.3 F Pulse Rate 98 H Pulse Rate [Brachial] 100 H 83 Respiratory Rate 20 18 Blood Pressure [Left Arm] Blood Pressure [Right Arm] 149/67 158/65 O2 Sat by Pulse Oximetry 96 95 96 Oxygen Delivery Method 06/05/23 08:00 06/05/23 07:00 06/05/23 08:12 Temperature 98.3 F Pulse Rate 83 Pulse Rate [Brachial] 94 H Respiratory Rate 20 Blood Pressure [Left Arm] Blood Pressure [Right Arm] 115/79 O2 Sat by Pulse Oximetry 94 L 97 Oxygen Delivery Method Room Air 06/05/23 08:12 06/05/23 12:00 06/05/23 16:00 Temperature 98.5 F 98.3 F Pulse Rate Pulse Rate [Brachial] 73 72 Respiratory Rate 20 20 Blood Pressure [Left Arm] Blood Pressure [Right Arm] 149/67 145/77 O2 Sat by Pulse Oximetry 98 93 L Oxygen Delivery Method Room Air 06/05/23 19:00 06/05/23 20:00 06/05/23 21:15 Temperature 99.1 F Pulse Rate Pulse Rate [Brachial] 89 Respiratory Rate 20 Blood Pressure [Left Arm] Blood Pressure [Right Arm] 151/74 O2 Sat by Pulse Oximetry 95 Oxygen Delivery Method Room Air Room Air 06/05/23 21:15 06/06/23 00:00 06/06/23 04:00 Temperature 98.3 F 98.7 F Pulse Rate 80 Pulse Rate [Brachial] 88 93 H Respiratory Rate 20 20 Blood Pressure [Left Arm] 140/71 164/73 Blood Pressure [Right Arm] O2 Sat by Pulse Oximetry 96 96 93 L Oxygen Delivery Method 06/06/23 07:00 06/06/23 09:01 Temperature Pulse Rate 71 Pulse Rate [Brachial] Respiratory Rate Blood Pressure [Left Arm] Blood Pressure [Right Arm] O2 Sat by Pulse Oximetry 97 Oxygen Delivery Method Room Air Labs: Laboratory Last Values WBC 12.5 X10^3/uL (3.6-10.0) H 06/06/23 05:15 RBC 3.56 X10^6/uL (4.7-6.0) L 06/06/23 05:15 Hgb 10.8 g/dL (13.5-18.0) L 06/06/23 05:15 Hct 32.5 % (42.0-54.0) L 06/06/23 05:15 MCV 91.5 fL (80.0-100.0) 06/06/23 05:15 MCH 30.3 pg (27.0-34.0) 06/06/23 05:15 MCHC 33.1 g/dL (33.0-35.0) 06/06/23 05:15 RDW 15.0 % (11.6-16.5) 06/06/23 05:15 Plt Count 148 X10^3/uL (150.0-450.0) L 06/06/23 05:15 MPV 8.8 fL (7.4-11.0) 06/06/23 05:15 Neut % (Auto) 89.2 % (42.0-75.0) H 06/06/23 05:15 Lymph % (Auto) 6.0 % (21.0-51.0) L 06/06/23 05:15 [place] % (Auto) 4.8 % (0.0-13.0) 06/06/23 05:15 Eos % (Auto) 0.0 % (0.9-2.9) L 06/06/23 05:15 Baso % (Auto) 0 % (0.2-1.0) L 06/06/23 05:15 Neut # (Auto) 11.2 x10^3/uL (2.2-4.8) H 06/06/23 05:15 Lymph # (Auto) 0.7 X10^3/uL (1.3-2.9) L 06/06/23 05:15 [place] # (Auto) 0.6 x10^3/uL (0.3-0.8) 06/06/23 05:15 Eos # (Auto) 0.0 x10^3/uL (0.0-0.2) 06/06/23 05:15 Baso # (Auto) 0.0 X10^3/uL (0.0-0.1) 06/06/23 05:15 Absolute Nucleated RBC 0.0 /100WBC 06/06/23 05:15 Sample Site Rrad 06/02/23 18:15 ABG pH 7.500 (7.35-7.45) H 06/02/23 18:15 ABG pCO2 42.0 mmHg (35.0-45.0) 06/02/23 18:15 ABG pO2 66.0 mmHg (80.0-100.0) L 06/02/23 18:15 ABG HCO3 32.8 mmol/L (22-26) H* 06/02/23 18:15 ABG O2 Saturation 94.0 % (90-100) 06/02/23 18:15 ABG Base Excess 8.7 mmol/L (-2.0-2.0) H 06/02/23 18:15 Toribio Test Pos 06/02/23 18:15 A-a Gradient 31.0 mmHg 06/02/23 18:15 FiO2 21.0 06/02/23 18:15 Blood Gas Comments Pt ara well. eb/kg 06/02/23 18:15 Sodium 137 mmol/L (136-145) 06/06/23 05:15 Corrected Sodium 142 mmol/L (136-145) 06/06/23 05:15 Potassium 4.6 mmol/L (3.5-5.1) 06/06/23 05:15 Chloride 100 mmol/L (98-107) 06/06/23 05:15 Carbon Dioxide 32.1 mmol/L (21-32) H 06/06/23 05:15 BUN 32 mg/dL (7-18) H 06/06/23 05:15 Creatinine 1.59 mg/dL (0.70-1.30) H 06/06/23 05:15 Est GFR (MDRD) Af Amer 53 (>60) L 06/06/23 05:15 Est GFR (MDRD) Non-Af 44 (>60) L 06/06/23 05:15 Glucose 307 mg/dL (65-99) H 06/06/23 05:15 POC Glucose (mg/dL) 297 mg/dL (65-99) H 06/06/23 05:41 Calcium 8.5 mg/dL (8.5-10.1) 06/06/23 05:15 Corrected Calcium 9.2 mg/dL (8.5-10.1) 06/06/23 05:15 Magnesium 2.1 mg/dL (2.0-2.9) 06/05/23 05:27 Total Bilirubin 0.40 mg/dL (0.2-1.0) 06/06/23 05:15 AST 45 Units/L (15-37) H 06/06/23 05:15 ALT 27 Units/L (12-78) 06/06/23 05:15 Alkaline Phosphatase 76 Units/L (46-116) 06/06/23 05:15 Creatine Kinase 425 Units/L (39-308) H 06/02/23 09:10 Troponin I High Sens 52.5 ng/L (4.0-60.0) 06/02/23 12:00 B-Natriuretic Peptide 646 pg/mL (0-79) H 06/05/23 05:27 Total Protein 6.0 g/dL (6.4-8.2) L 06/06/23 05:15 Albumin 3.1 g/dL (3.4-5.0) L 06/06/23 05:15 Globulin 2.9 g/dL (2.5-4.5) 06/06/23 05:15 Albumin/Globulin Ratio 1.1 Ratio (1.1-2.1) 06/06/23 05:15 Specimen Type Clean catch urine 06/02/23 09:36 Urine Color Yellow (YELLOW) 06/02/23 09:36 Urine Appearance Clear (CLEAR) 06/02/23 09:36 Urine pH 6.0 (5.0 - 8.0) 06/02/23 09:36 Ur Specific [place] 1.010 (1.000-1.030) 06/02/23 09:36 Urine Protein 1+ (NEGATIVE) 06/02/23 09:36 Urine Glucose (UA) 2+ (NEGATIVE) 06/02/23 09:36 Urine Ketones Negative (NEGATIVE) 06/02/23 09:36 Urine Blood 1+ (NEGATIVE) 06/02/23 09:36 Urine Nitrite Negative (NEGATIVE) 06/02/23 09:36 Urine Bilirubin Negative (NEGATIVE) 06/02/23 09:36 Urine Urobilinogen Normal (NORMAL) 06/02/23 09:36 Ur Leukocyte Esterase Negative (NEGATIVE) 06/02/23 09:36 Urine RBC 0-2 /HPF (0-3) 06/02/23 09:36 Urine WBC None seen /HPF (0-5) 06/02/23 09:36 Ur Squamous Epith Cells Rare /HPF (NEGATIVE) 06/02/23 09:36 Urine Bacteria Negative /HPF (NEGATIVE) 06/02/23 09:36 Ur Culture Indicated? No/not indicated 06/02/23 09:36 SARS-CoV-2 (PCR) Negative (NEGATIVE) 06/03/23 22:30 Influenza Type A (PCR) Negative (NEGATIVE) 06/03/23 22:30 Influenza Type B (PCR) Negative (NEGATIVE) 06/03/23 22:30 RSV (PCR) Negative (NEGATIVE) 06/03/23 22:30 Reason For Visit: RENAL INSUFFICENCY, BRONCHITIS, CHF EXACERBATION Discharge Diagnosis All Active Problems (Updated 06/05/23 @ 10:58 by Jocelyn Tnaner) Type 2 diabetes mellitus (Acute) Acute on chronic renal failure (Acute) Bronchitis (Acute) Hallucinations (Acute) CHF (congestive heart failure) (Acute) Renal insufficiency (Acute) Edema (Acute) At risk for acute ischemic cardiac event (Acute) Plan of Treatment: Continue with present treatment and follow up plan. Pt is to keep follow up appointment as instructed and take medications as ordered. Discharge Medications Discharge Medications: codeine Allergy (Verified 06/02/23 09:21) lidocaine Allergy (Verified 06/02/23 09:21) CONTINUE taking the following medications sacubitril 24 mg-valsartan 26 mg tablet (Entresto) 1 tab PO BID 06/02/23 [History] New Prescriptions budesonide 0.5 mg/2 mL suspension for nebulization 0.5 mg (2 mL) NEB BIDRESP 10 days #40 mL 06/06/23 [Rx] doxycycline hyclate 100 mg capsule 100 mg PO BID 5 days #10 caps 06/06/23 [Rx] ipratropium 0.5 mg-albuterol 3 mg (2.5 mg base)/3 mL nebulization soln 3 ml NEB QIDRESP 15 days #45 EACH 06/06/23 [Rx] prednisone 20 mg tablet 20 mg PO BID 4 days #8 tabs 06/06/23 [Rx] Discharge Disposition Discharge Disposition: To home Discharge Condition: Stable Discharge Plan Discharge Plan Hospital Course: Mr. Villasenor is a 83-year-old male with a past medical history of CAD, CABG, atrial fibrillation, Watchman procedure, CHF, hypertension presented with upper respiratory symptoms, altered mental status after having a left heart cath. He was admitted for CHF exacerbation, SHAREE and bronchitis. He was treated with IV Lasix, nebs and antibiotics. His labs were monitored daily and electrolytes were replaced as needed. He was also started on prednisone and Pulmicort due to excessive wheezing. His respiratory panel showed rhinovirus and enterovirus. Patient was feeling better and ambulating in the room. His leg edema was also better. He has been seeing Dr. Magaña for all his cardiac issues. He was stable for discharge home with oral antibiotics and steroids. He will follow-up with PCP and cardiology as scheduled. Patient Disposition: 01 HOME, SELF-CARE Condition: Stable Health Concerns: Post Hospitalization: new medications and changes needed to prevent readmission or further decline. Pt educated and given instructions on all concerns. Plan of Treatment: Continue with present treatment and follow up plan. Pt is to keep follow up appointment as instructed and take medications as ordered. Prescription drug monitoring program results: PDMP reviewed and no concerns identified Prescriptions: New ipratropium-albuterol 0.5 mg-3 mg(2.5 mg base)/3 mL Solution For Nebulization 3 ml NEB QIDRESP 15 Days Qty: 45 0RF budesonide 0.5 mg/2 mL Suspension For Nebulization 0.5 mg NEB BIDRESP 10 Days Qty: 40 0RF Continued latanoprost 0.005 % drops 1 drp ophthalmic (eye) QPM Rx Instructions: take at bedtime aspirin 81 mg tablet,delayed release (DR/EC) 81 mg PO QDAY Rx Instructions: before breakfast repaglinide 1 mg tablet 1 mg PO TID Rx Instructions: take before breakfast, before supper and at bedtime Januvia 50 mg tablet 50 mg PO QDAY Rx Instructions: take after breakfast pioglitazone 15 mg tablet 15 mg PO QDAY Rx Instructions: take after breakfast metoprolol succinate 100 mg tablet extended release 24 hr 100 mg PO QDAY Rx Instructions: take after breakfast brimonidine 0.2 % drops 1 drp ophthalmic (eye) BID Patient Comments: [NO ORIGINAL SIG] Rx Instructions: after breakfast and at bedtime insulin lispro protamin-lispro [Humalog Mix 75-25 KwikPen] 100 unit/mL (75-25) insulin pen See Rx Instructions .ROUTE .COMPLEX Patient Comments: INJECT 7 UNITS UNDER THE SKIN WITH BREAKFAST AND 5 UNITS UNDER THE SKIN WITH DINNER Rx Instructions: 7 units sq daily after breakfast and 5 units sq at bedtime daily cholecalciferol (vitamin D3) 25 mcg (1,000 unit) tablet 25 mcg PO QDAY Rx Instructions: take before lunch furosemide [Lasix] 20 mg tablet 20 mg PO QAM Qty: 90 3RF Rx Instructions: take before breakfast amiodarone 200 mg tablet 200 mg PO QDAY Qty: 90 3RF Rx Instructions: take before breakfast levothyroxine [Levoxyl] 100 MCG tablet 100 mcg PO DAILY Rx Instructions: take before breakfast tamsulosin 0.4 MG capsule,extended release 24hr 0.4 mg PO DAILY Rx Instructions: take after supper simvastatin 20 MG tablet 20 mg PO HS Rx Instructions: take after supper Entresto 24-26 mg tablet 1 tab PO BID Rx Instructions: take before breakfast and at bedtime Follow ups/Referrals Follow ups/Referrals: NORMAN LEIGH [Primary Care Provider] - 3 days Instructions Instructions: Heart Failure, Self-Care, [id number], Acute Bronchitis, Adult, [id number], Heart Failure Exacerbation Activity Restrictions/Additional Instructions: Call Dr. Magaña's office for follow up appointment. Stand Alone Forms: Excuse From Work or School, Post Hospital Follow Up Care
== END 2023-06-06 11:45 | disposition home or self-care (01) | DRG 202 ==
LOC: MED/SURG 08:46 → ER 08:46 → MED/SURG 14:45
PROVIDERS: ADMIT Internal Medicine; ATTEND Internal Medicine
DX: J20.6 Acute bronchitis due to rhinovirus; Z91.81 History of falling; R53.1 Weakness; E11.65 Type 2 diabetes mellitus with hyperglycemia; I25.810 Atherosclerosis of coronary artery bypass graft(s) without angina pectoris; I13.0 Hypertensive heart and chronic kidney disease with heart failure and stage 1 through stage 4 chronic kidney disease, or unspecified chronic kidney disease; I48.91 Unspecified atrial fibrillation; N17.8 Other acute kidney failure; Z20.822 Contact with and (suspected) exposure to COVID-19; R06.02 Shortness of breath; N18.9 Chronic kidney disease, unspecified; I50.9 Heart failure, unspecified; R77.8 Other specified abnormalities of plasma proteins; Z79.4 Long term (current) use of insulin; R44.3 Hallucinations, unspecified

== ENCOUNTER 2023-09-17 09:11 | Observation (INO) ==
[2023-09-17 09:23] VITALS: BMI 33.2
--- NOTE | 2023-09-17 09:25 | DR.WEAKNES ---
HPI <Wing Hernandez Filed: 09/17/23 13:47> Time Seen Time Seen by Provider: 09/17/23 09:19 HPI Comment HPI Comment: family states pt was acting different this am asking same questions and acting slightly confused no focal deficits pt has had watchmans procedures and cabg pt sates he feels different PMH <Wing Landry David Filed: 09/17/23 13:47> PMH Past Medical History: Coronary Artery Disease, Diabetes, Dyslipidemia, Hypertension, Hypothyroidism, CO and Renal Disease Past Surgical History: Yes Surgical History: CABG/Valve Surgery Family History Family Medical History: Diabetes Mellitus and Cancer Social History Do you use any recreational Drugs:: No Travel Risk Coronavirus risk:travel/contact w/high risk person: No Has patient experienced Coronavirus symptoms: No ROS <Wing Hernandez Filed: 09/17/23 13:47> Review of Systems All Other Systems: Reviewed and Negative PE <Wing Hernandez Filed: 09/17/23 13:47> Vital Signs Vitals: Vital Signs Temperature 98.4 F Pulse Rate 72 Pulse Rate 69 Pulse Rate 68 Pulse Rate 68 Pulse Rate 68 Pulse Rate 69 Pulse Rate 68 Pulse Rate 68 Pulse Rate 68 Pulse Rate 68 Pulse Rate 68 Pulse Rate 68 Pulse Rate 69 Pulse Rate 68 Pulse Rate 69 Pulse Rate 74 Pulse Rate 70 Pulse Rate 74 Pulse Rate 70 Pulse Rate 79 Pulse Rate 79 Respiratory Rate 20 Respiratory Rate 19 Respiratory Rate 16 Respiratory Rate 17 Respiratory Rate 20 Respiratory Rate 17 Respiratory Rate 16 Respiratory Rate 17 Respiratory Rate 15 Respiratory Rate 18 Respiratory Rate 15 Respiratory Rate 18 Respiratory Rate 18 Respiratory Rate 16 Respiratory Rate 17 Respiratory Rate 19 Respiratory Rate 22 Respiratory Rate 15 Respiratory Rate 20 Respiratory Rate 20 Blood Pressure 177/98 Blood Pressure 179/94 Blood Pressure 198/96 Blood Pressure 184/91 Blood Pressure 186/95 Blood Pressure 187/88 Blood Pressure 167/91 Blood Pressure 167/89 Blood Pressure 168/85 Blood Pressure 181/84 Blood Pressure 181/84 Blood Pressure 181/84 Blood Pressure 149/83 Blood Pressure 158/73 O2 Sat by Pulse Oximetry 98 O2 Sat by Pulse Oximetry 98 O2 Sat by Pulse Oximetry 98 O2 Sat by Pulse Oximetry 98 O2 Sat by Pulse Oximetry 98 O2 Sat by Pulse Oximetry 98 O2 Sat by Pulse Oximetry 95 O2 Sat by Pulse Oximetry 99 O2 Sat by Pulse Oximetry 99 O2 Sat by Pulse Oximetry 98 O2 Sat by Pulse Oximetry 98 O2 Sat by Pulse Oximetry 99 O2 Sat by Pulse Oximetry 98 O2 Sat by Pulse Oximetry 98 O2 Sat by Pulse Oximetry 98 O2 Sat by Pulse Oximetry 99 O2 Sat by Pulse Oximetry 99 O2 Sat by Pulse Oximetry 99 O2 Sat by Pulse Oximetry 99 Head Head Exam: Normal Inspection Eyes Eye exam: Normal Appearance ENT ENT Exam: Normal Exam Neck Neck Exam: Normal Inspection Cardiovascular Cardiovascular Exam: Regular Rate and Normal Rhythm Neurologic Speech: Fluid Speech Cranial Nerve Exam: EOM Function (II, III, IV, ): Normal, Facial Sensation (V): Normal, Facial Palsy (VII): Normal, Gag reflex (XI): Normal, Spinal Accessory Function (XI): Normal and Tongue Deviation: Normal Cerebellar Function: Finger to Nose: Left Abnormal and Heel to Elena: Normal Psychiatric Psychiatric Exam: Normal Affect Skin Skin Exam: Warm <Jose Schultz - Last Filed: 09/17/23 10:59> Vital Signs Vitals: Vital Signs Temperature 98.4 F Pulse Rate 72 Pulse Rate 69 Pulse Rate 68 Pulse Rate 68 Pulse Rate 68 Pulse Rate 69 Pulse Rate 68 Pulse Rate 68 Pulse Rate 68 Pulse Rate 68 Pulse Rate 68 Pulse Rate 68 Pulse Rate 69 Pulse Rate 68 Pulse Rate 69 Pulse Rate 74 Pulse Rate 70 Pulse Rate 74 Pulse Rate 70 Pulse Rate 79 Pulse Rate 79 Respiratory Rate 20 Respiratory Rate 19 Respiratory Rate 16 Respiratory Rate 17 Respiratory Rate 20 Respiratory Rate 17 Respiratory Rate 16 Respiratory Rate 17 Respiratory Rate 15 Respiratory Rate 18 Respiratory Rate 15 Respiratory Rate 18 Respiratory Rate 18 Respiratory Rate 16 Respiratory Rate 17 Respiratory Rate 19 Respiratory Rate 22 Respiratory Rate 15 Respiratory Rate 20 Respiratory Rate 20 Blood Pressure 177/98 Blood Pressure 179/94 Blood Pressure 198/96 Blood Pressure 184/91 Blood Pressure 186/95 Blood Pressure 187/88 Blood Pressure 167/91 Blood Pressure 167/89 Blood Pressure 168/85 Blood Pressure 181/84 Blood Pressure 181/84 Blood Pressure 181/84 Blood Pressure 149/83 Blood Pressure 158/73 O2 Sat by Pulse Oximetry 98 O2 Sat by Pulse Oximetry 98 O2 Sat by Pulse Oximetry 98 O2 Sat by Pulse Oximetry 98 O2 Sat by Pulse Oximetry 98 O2 Sat by Pulse Oximetry 98 O2 Sat by Pulse Oximetry 95 O2 Sat by Pulse Oximetry 99 O2 Sat by Pulse Oximetry 99 O2 Sat by Pulse Oximetry 98 O2 Sat by Pulse Oximetry 98 O2 Sat by Pulse Oximetry 99 O2 Sat by Pulse Oximetry 98 O2 Sat by Pulse Oximetry 98 O2 Sat by Pulse Oximetry 98 O2 Sat by Pulse Oximetry 99 O2 Sat by Pulse Oximetry 99 O2 Sat by Pulse Oximetry 99 O2 Sat by Pulse Oximetry 99 MDM <Wing Frantz Faulkner Last Filed: 09/17/23 13:47> Differential Diagnosis Differential Diagnosis: CVA COURSE <Wing Landry Last Filed: 09/17/23 13:47> Treatment Treatment: strke alert sent for ct Critical Care Notes Critical Interventions: spoke with Dr Alexandra this am 9.50a who felt pt had some coordination problems l hand past point and 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 so he ordered cta and recomends admit and mri cta read as nl filling overall but was late phase study so we will get us to clear common carotids spoke with Dr Tanner who will admit ROR <Wing Landry Last Filed: 09/17/23 13:47> Labs Reviewed 09/17/23 09:20 09/17/23 09:20 Laboratory: WBC 5.7 X10^3/uL (3.6-10.0) 09/17/23 09:20 RBC 3.66 X10^6/uL (4.7-6.0) L 09/17/23 09:20 Hgb 11.3 g/dL (13.5-18.0) L 09/17/23 09:20 Hct 34.1 % (42.0-54.0) L 09/17/23 09:20 MCV 93.2 fL (80.0-100.0) 09/17/23 09:20 MCH 30.9 pg (27.0-34.0) 09/17/23 09:20 MCHC 33.2 g/dL (33.0-35.0) 09/17/23 09:20 RDW 15.3 % (11.6-16.5) 09/17/23 09:20 Plt Count 118 X10^3/uL (150.0-450.0) L 09/17/23 09:20 MPV 8.5 fL (7.4-11.0) 09/17/23 09:20 Neut % (Auto) 68.9 % (42.0-75.0) 09/17/23 09:20 Lymph % (Auto) 17.8 % (21.0-51.0) L 09/17/23 09:20 [place] % (Auto) 9.6 % (0.0-13.0) 09/17/23 09:20 Eos % (Auto) 2.5 % (0.9-2.9) 09/17/23 09:20 Baso % (Auto) 1.2 % (0.2-1.0) H 09/17/23 09:20 Neut # (Auto) 4.0 x10^3/uL (2.2-4.8) 09/17/23 09:20 Lymph # (Auto) 1.0 X10^3/uL (1.3-2.9) L 09/17/23 09:20 [place] # (Auto) 0.5 x10^3/uL (0.3-0.8) 09/17/23 09:20 Eos # (Auto) 0.1 x10^3/uL (0.0-0.2) 09/17/23 09:20 Baso # (Auto) 0.1 X10^3/uL (0.0-0.1) 09/17/23 09:20 Absolute Nucleated RBC 0.1 /100WBC 09/17/23 09:20 PT 16.2 SECONDS (11.8-14.3) 09/17/23 09:20 INR Target Range - 09/17/23 09:20 INR 1.32 (0.8-1.3) H 09/17/23 09:20 APTT 34.7 SECONDS (22.9-36.5) 09/17/23 09:20 PTT Comment - 09/17/23 09:20 Fibrinogen 314 mg/dL (239-489) 09/17/23 09:20 Sodium 142 mmol/L (136-145) 09/17/23 09:20 Corrected Sodium 143 mmol/L (136-145) 09/17/23 09:20 Potassium 4.4 mmol/L (3.5-5.1) 09/17/23 09:20 Chloride 104 mmol/L (98-107) 09/17/23 09:20 Carbon Dioxide 32.2 mmol/L (21-32) H 09/17/23 09:20 BUN 16 mg/dL (7-18) 09/17/23 09:20 Creatinine 1.49 mg/dL (0.70-1.30) H 09/17/23 09:20 Est GFR (MDRD) Af Amer 58 (>60) L 09/17/23 09:20 Est GFR (MDRD) Non-Af 48 (>60) L 09/17/23 09:20 Glucose 142 mg/dL (65-99) H 09/17/23 09:20 POC Glucose (mg/dL) 151 mg/dL (65-99) H 09/17/23 09:16 Calcium 8.8 mg/dL (8.5-10.1) 09/17/23 09:20 Corrected Calcium TNP 09/17/23 09:20 Total Bilirubin 0.60 mg/dL (0.2-1.0) 09/17/23 09:20 AST 23 Units/L (15-37) 09/17/23 09:20 ALT 23 Units/L (12-78) 09/17/23 09:20 Alkaline Phosphatase 66 Units/L (46-116) 09/17/23 09:20 Creatine Kinase 102 Units/L (39-308) 09/17/23 09:20 Troponin I High Sens 24.3 ng/L (4.0-60.0) 09/17/23 09:20 Total Protein 6.5 g/dL (6.4-8.2) 09/17/23 09:20 Albumin 3.6 g/dL (3.4-5.0) 09/17/23 09:20 Globulin 2.9 g/dL (2.5-4.5) 09/17/23 09:20 Albumin/Globulin Ratio 1.2 Ratio (1.1-2.1) 09/17/23 09:20 Triglycerides 45 mg/dL (0-150) 09/17/23 09:20 Cholesterol 106 mg/dL (0-200) 09/17/23 09:20 LDL Cholesterol, Calc 44 mg/dL (0-100) 09/17/23 09:20 HDL Cholesterol 53 mg/dL (40-60) 09/17/23 09:20 Cholesterol/HDL Ratio 2.0 (0.0-5.0) 09/17/23 09:20 Specimen Type Catherized urine 09/17/23 09:55 Urine Color Straw (YELLOW) 09/17/23 09:55 Urine Appearance Clear (CLEAR) 09/17/23 09:55 Urine pH 7.0 (5.0 - 8.0) 09/17/23 09:55 Ur Specific [place] 1.010 (1.000-1.030) 09/17/23 09:55 Urine Protein Negative (NEGATIVE) 09/17/23 09:55 Urine Glucose (UA) Negative (NEGATIVE) 09/17/23 09:55 Urine Ketones Negative (NEGATIVE) 09/17/23 09:55 Urine Blood Negative (NEGATIVE) 09/17/23 09:55 Urine Nitrite Negative (NEGATIVE) 09/17/23 09:55 Urine Bilirubin Negative (NEGATIVE) 09/17/23 09:55 Urine Urobilinogen Normal (NORMAL) 09/17/23 09:55 Ur Leukocyte Esterase Negative (NEGATIVE) 09/17/23 09:55 Urine Opiates Screen Negative (NEG=<300) 09/17/23 09:55 Urine Methadone Screen Negative (NEG=<300) 09/17/23 09:55 Ur Barbiturates Screen Negative (NEG=<200) 09/17/23 09:55 Ur Phencyclidine Scrn Negative (NEG=<25) 09/17/23 09:55 Ur Amphetamines Screen Negative (NEG=<1000) 09/17/23 09:55 U Benzodiazepines Scrn Negative (NEG=<200) 09/17/23 09:55 Urine Cocaine Screen Negative (NEG=<300) 09/17/23 09:55 U Marijuana (THC) Screen Negative (NEG=<50) 09/17/23 09:55 EKG Rate: 72 Rhythm: Paced <Jose Marion - Last Filed: 09/17/23 10:59> Labs Reviewed Laboratory: WBC 5.7 X10^3/uL (3.6-10.0) 09/17/23 09:20 RBC 3.66 X10^6/uL (4.7-6.0) L 09/17/23 09:20 Hgb 11.3 g/dL (13.5-18.0) L 09/17/23 09:20 Hct 34.1 % (42.0-54.0) L 09/17/23 09:20 MCV 93.2 fL (80.0-100.0) 09/17/23 09:20 MCH 30.9 pg (27.0-34.0) 09/17/23 09:20 MCHC 33.2 g/dL (33.0-35.0) 09/17/23 09:20 RDW 15.3 % (11.6-16.5) 09/17/23 09:20 Plt Count 118 X10^3/uL (150.0-450.0) L 09/17/23 09:20 MPV 8.5 fL (7.4-11.0) 09/17/23 09:20 Neut % (Auto) 68.9 % (42.0-75.0) 09/17/23 09:20 Lymph % (Auto) 17.8 % (21.0-51.0) L 09/17/23 09:20 [place] % (Auto) 9.6 % (0.0-13.0) 09/17/23 09:20 Eos % (Auto) 2.5 % (0.9-2.9) 09/17/23 09:20 Baso % (Auto) 1.2 % (0.2-1.0) H 09/17/23 09:20 Neut # (Auto) 4.0 x10^3/uL (2.2-4.8) 09/17/23 09:20 Lymph # (Auto) 1.0 X10^3/uL (1.3-2.9) L 09/17/23 09:20 [place] # (Auto) 0.5 x10^3/uL (0.3-0.8) 09/17/23 09:20 Eos # (Auto) 0.1 x10^3/uL (0.0-0.2) 09/17/23 09:20 Baso # (Auto) 0.1 X10^3/uL (0.0-0.1) 09/17/23 09:20 Absolute Nucleated RBC 0.1 /100WBC 09/17/23 09:20 PT 16.2 SECONDS (11.8-14.3) 09/17/23 09:20 INR Target Range - 09/17/23 09:20 INR 1.32 (0.8-1.3) H 09/17/23 09:20 APTT 34.7 SECONDS (22.9-36.5) 09/17/23 09:20 PTT Comment - 09/17/23 09:20 Fibrinogen 314 mg/dL (239-489) 09/17/23 09:20 Sodium 142 mmol/L (136-145) 09/17/23 09:20 Corrected Sodium 143 mmol/L (136-145) 09/17/23 09:20 Potassium 4.4 mmol/L (3.5-5.1) 09/17/23 09:20 Chloride 104 mmol/L (98-107) 09/17/23 09:20 Carbon Dioxide 32.2 mmol/L (21-32) H 09/17/23 09:20 BUN 16 mg/dL (7-18) 09/17/23 09:20 Creatinine 1.49 mg/dL (0.70-1.30) H 09/17/23 09:20 Est GFR (MDRD) Af Amer 58 (>60) L 09/17/23 09:20 Est GFR (MDRD) Non-Af 48 (>60) L 09/17/23 09:20 Glucose 142 mg/dL (65-99) H 09/17/23 09:20 POC Glucose (mg/dL) 151 mg/dL (65-99) H 09/17/23 09:16 Calcium 8.8 mg/dL (8.5-10.1) 09/17/23 09:20 Corrected Calcium TNP 09/17/23 09:20 Total Bilirubin 0.60 mg/dL (0.2-1.0) 09/17/23 09:20 AST 23 Units/L (15-37) 09/17/23 09:20 ALT 23 Units/L (12-78) 09/17/23 09:20 Alkaline Phosphatase 66 Units/L (46-116) 09/17/23 09:20 Creatine Kinase 102 Units/L (39-308) 09/17/23 09:20 Troponin I High Sens 24.3 ng/L (4.0-60.0) 09/17/23 09:20 Total Protein 6.5 g/dL (6.4-8.2) 09/17/23 09:20 Albumin 3.6 g/dL (3.4-5.0) 09/17/23 09:20 Globulin 2.9 g/dL (2.5-4.5) 09/17/23 09:20 Albumin/Globulin Ratio 1.2 Ratio (1.1-2.1) 09/17/23 09:20 Triglycerides 45 mg/dL (0-150) 09/17/23 09:20 Cholesterol 106 mg/dL (0-200) 09/17/23 09:20 LDL Cholesterol, Calc 44 mg/dL (0-100) 09/17/23 09:20 HDL Cholesterol 53 mg/dL (40-60) 09/17/23 09:20 Cholesterol/HDL Ratio 2.0 (0.0-5.0) 09/17/23 09:20 Specimen Type Catherized urine 09/17/23 09:55 Urine Color Straw (YELLOW) 09/17/23 09:55 Urine Appearance Clear (CLEAR) 09/17/23 09:55 Urine pH 7.0 (5.0 - 8.0) 09/17/23 09:55 Ur Specific [place] 1.010 (1.000-1.030) 09/17/23 09:55 Urine Protein Negative (NEGATIVE) 09/17/23 09:55 Urine Glucose (UA) Negative (NEGATIVE) 09/17/23 09:55 Urine Ketones Negative (NEGATIVE) 09/17/23 09:55 Urine Blood Negative (NEGATIVE) 09/17/23 09:55 Urine Nitrite Negative (NEGATIVE) 09/17/23 09:55 Urine Bilirubin Negative (NEGATIVE) 09/17/23 09:55 Urine Urobilinogen Normal (NORMAL) 09/17/23 09:55 Ur Leukocyte Esterase Negative (NEGATIVE) 09/17/23 09:55 Urine Opiates Screen Negative (NEG=<300) 09/17/23 09:55 Urine Methadone Screen Negative (NEG=<300) 09/17/23 09:55 Ur Barbiturates Screen Negative (NEG=<200) 09/17/23 09:55 Ur Phencyclidine Scrn Negative (NEG=<25) 09/17/23 09:55 Ur Amphetamines Screen Negative (NEG=<1000) 09/17/23 09:55 U Benzodiazepines Scrn Negative (NEG=<200) 09/17/23 09:55 Urine Cocaine Screen Negative (NEG=<300) 09/17/23 09:55 U Marijuana (THC) Screen Negative (NEG=<50) 09/17/23 09:55 Opioid <Wing Landry - Last Filed: 09/17/23 13:47> Opioid Risk Tool Age (Seven box if 16-45): No History of Preadolescent Sexual Abuse: No Total: 0 Total Score Risk Category: Low Risk Copyright: [employer] predicting aberrant behaviors <Josegelacio Schultz - Last Filed: 09/17/23 10:59> Opioid Risk Tool Total: 0 Total Score Risk Category: Low Risk Discharge Plan Discharge Plan Patient Disposition: HOME, SELF-CARE Condition: Stable Prescriptions: No Action metoprolol succinate 100 mg tablet extended release 24 hr 100 mg PO QDAY 90 Days Qty: 90 3RF Rx Instructions: take after breakfast latanoprost 0.005 % drops 1 drp ophthalmic (eye) QPM Rx Instructions: take at bedtime aspirin 81 mg tablet,delayed release (DR/EC) 81 mg PO QDAY Rx Instructions: before breakfast repaglinide 1 mg tablet 1 mg PO TID Rx Instructions: take before breakfast, before supper and at bedtime Januvia 50 mg tablet 50 mg PO QDAY Rx Instructions: take after breakfast pioglitazone 15 mg tablet 15 mg PO QDAY Rx Instructions: take after breakfast brimonidine 0.2 % drops 1 drp ophthalmic (eye) BID Patient Comments: [NO ORIGINAL SIG] Rx Instructions: after breakfast and at bedtime insulin lispro protamin-lispro [Humalog Mix 75-25 KwikPen] 100 unit/mL (75-25) insulin pen See Rx Instructions .ROUTE .COMPLEX Patient Comments: INJECT 7 UNITS UNDER THE SKIN WITH BREAKFAST AND 5 UNITS UNDER THE SKIN WITH DINNER Rx Instructions: 7 units sq daily after breakfast and 5 units sq at bedtime daily cholecalciferol (vitamin D3) 25 mcg (1,000 unit) tablet 25 mcg PO QDAY Rx Instructions: take before lunch furosemide [Lasix] 20 mg tablet 20 mg PO QAM Qty: 90 3RF Rx Instructions: take before breakfast amiodarone 200 mg tablet 200 mg PO QDAY Qty: 90 3RF Rx Instructions: take before breakfast levothyroxine [Levoxyl] 100 MCG tablet 100 mcg PO DAILY Rx Instructions: take before breakfast tamsulosin 0.4 MG capsule,extended release 24hr 0.4 mg PO DAILY Rx Instructions: take after supper simvastatin 20 MG tablet 20 mg PO HS Rx Instructions: take after supper Entresto 24-26 mg tablet 1 tab PO BID Rx Instructions: take before breakfast and at bedtime Health Concerns: Post Hospitalization: new medications and changes needed to prevent readmission or further decline. Pt educated and given instructions on all concerns. Plan of Treatment: Continue with present treatment and follow up plan. Pt is to keep follow up appointment as instructed and take medications as ordered. Follow ups/Referrals Follow ups/Referrals: NORMAN LEIGH [Primary Care Provider] - 3 days Instructions Stand Alone Forms: Post Hospital Follow Up Care
[2023-09-17 09:28] LABS: BASOPHILS # (AUTO) 0.1 X10^3/uL (0.0-0.1); BASOPHILS % (AUTO) 1.2 % (0.2-1.0); EOSINOPHILS # (AUTO) 0.1 x10^3/uL (0.0-0.2); EOSINOPHILS % (AUTO) 2.5 % (0.9-2.9); HEMATOCRIT 34.1 % (42.0-54.0); HEMOGLOBIN 11.3 g/dL (13.5-18.0); LYMPHOCYTES % (AUTO) 17.8 % (21.0-51.0); MEAN CORPUSCULAR HEMOGLOBIN 30.9 pg (27.0-34.0); MEAN CORPUSCULAR HGB CONC 33.2 g/dL (33.0-35.0); MEAN CORPUSCULAR VOLUME 93.2 fL (80.0-100.0); MEAN PLATELET VOLUME 8.5 fL (7.4-11.0); MONOCYTES # (AUTO) 0.5 x10^3/uL (0.3-0.8); MONOCYTES % (AUTO) 9.6 % (0.0-13.0); NEUTROPHILS % (AUTO) 68.9 % (42.0-75.0); PLATELET COUNT 118 X10^3/uL (150.0-450.0); RED BLOOD COUNT 3.66 X10^6/uL (4.7-6.0); RED CELL DISTRIBUTION WIDTH 15.3 % (11.6-16.5); WHITE BLOOD COUNT 5.7 X10^3/uL (3.6-10.0)
[2023-09-17 09:34] LABS: INR 1.32 (0.8-1.3)
[2023-09-17 09:44] LABS: ALANINE AMINOTRANSFERASE 23 Units/L (12-78); ALBUMIN 3.6 g/dL (3.4-5.0); ALKALINE PHOSPHATASE 66 Units/L (46-116); ASPARTATE AMINO TRANSFERASE 23 Units/L (15-37); BLOOD UREA NITROGEN 16 mg/dL (7-18); CALCIUM 8.8 mg/dL (8.5-10.1); CARBON DIOXIDE 32.2 mmol/L (21-32); CHLORIDE 104 mmol/L (98-107); CHOLESTEROL 106 mg/dL (0-200); COR NA(FOR HYPERGLY) 143 mmol/L (136-145); CREATININE 1.49 mg/dL (0.70-1.30); GLUCOSE 142 mg/dL (65-99); HDL CHOLESTEROL 53 mg/dL (40-60); POTASSIUM 4.4 mmol/L (3.5-5.1); SODIUM 142 mmol/L (136-145); TOTAL PROTEIN 6.5 g/dL (6.4-8.2); TRIGLYCERIDES 45 mg/dL (0-150); eGFR NON BLACK RACES 48 (>60)
--- NOTE | 2023-09-17 09:44 | CT ---
EXAM: BRAIN W/O CON HISTORY: CVA TECHNIQUE: Axial noncontrast images with coronal and sagittal reformats. Dose reduction procedures were used w ith mA/kv adjusted for body size. COMPARISON: 06/02/2023 FINDINGS: The ventricles, cortical sulci, and other CSF spaces are enlarged consistent with generalized atrop hy likely age-related. There is right frontal encephalomalacia likely due to an old right frontal co rtical and subcortical white matter CVA unchanged in appearance from the prior examination. There is slight decreased attenuation in the periventricular white matter suggestive of small-vessel vascular disease. There are no focal areas of abnormal attenuation to suggest recent CVA, hemorrhage, mass l esion, or extra-axial fluid collection. Visualized sinuses are clear. The calvarium is intact. If acute CVA or extension of the patient's old CVA is a strong clinical consideration MRI with diffusion imaging would be of further diagnostic value and should be considered. 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
[2023-09-17] MEDS: OMNIPAQUE 350 mg/mL 100 mL BTL 100 ML ONE (09:47)
--- NOTE | 2023-09-17 09:55 | EKG ---
Test Reason : stroke protocol Blood Pressure : */* mmHG Vent. Rate : 72 BPM Atrial Rate : 72 BPM P-R Int : 208 ms QRS Dur : 180 ms QT Int : 484 ms P-R-T Axes : 97 -80 98 degrees QTc Int : 529 ms AV dual-paced rhythm Abnormal ECG When compared with ECG of 02-JUN-2023 08:53, Vent. rate has increased BY 5 BPM Confirmed by Lawson Mcdermott ([id number]) on 09/17/2023 12:14:04 PM Referred By: Confirmed By: Lawson Mcdermott
[2023-09-17 10:21] LABS: BILIRUBIN,URINE NEGATIVE (NEGATIVE); BLOOD/HEMOGLOBIN,URINE NEGATIVE (NEGATIVE); GLUCOSE, URINE NEGATIVE (NEGATIVE); KETONES,URINE NEGATIVE (NEGATIVE); LEUKOCYTE ESTERASE ,URINE NEGATIVE (NEGATIVE); NITRITES,URINE NEGATIVE (NEGATIVE); PROTEIN,URINE NEGATIVE (NEGATIVE); UROBILINOGEN,URINE NORMAL (NORMAL)
[2023-09-17 10:25] LABS: APPEARANCE,URINE CLEAR (CLEAR); COLOR,URINE STRAW (YELLOW)
--- NOTE | 2023-09-17 10:32 | RAD ---
EXAM: Portable chest HISTORY: Stroke protocol COMPARISON: 06/05/2023 FINDINGS: There is a pacemaker present in the left axilla. Patient is status post median sternotomy and CABG . Heart is enlarged. No congestive heart failure is noted. No infiltrates are identified. No pleu ral effusions are identified. Bony thorax is unremarkable. IMPRESSION: Cardiomegaly without congestive heart failure Lungs clear THIS IS AN ELECTRONICALLY VERIFIED FINAL REPORT 09/17/2023 10:28 AM - Electronically signed by Aries Abernathy MD
[2023-09-17] MEDS ORDERED: NS 1,000 ML IV 1,000 ML ONE (11:31)
[2023-09-17] MEDS: NS 1,000 ML IV 1,000 ML IV SCH (11:35)
--- NOTE | 2023-09-17 13:03 | TELESTROKE ---
Tele-Specialist Consult Date of Consult Date of Exam: 09/17/23 Time of Arrival to the ED: 09:11 Allergies Allergies Allergy/AdvReac Type Severity Reaction Status Date / Time codeine Allergy Verified 09/17/23 09:16 lidocaine Allergy Verified 09/17/23 09:16 Vital Signs Vital Signs: Temp Pulse Resp BP Pulse Ox 09/17/23 12:30 68 16 98 09/17/23 12:30 187/88 09/17/23 12:15 68 17 95 09/17/23 12:15 167/91 09/17/23 12:00 167/89 09/17/23 11:45 168/85 09/17/23 11:45 68 15 99 09/17/23 11:36 68 18 99 09/17/23 11:36 181/84 09/17/23 11:36 181/84 09/17/23 11:36 181/84 09/17/23 11:30 68 15 98 09/17/23 11:15 68 18 98 09/17/23 11:00 69 18 99 09/17/23 10:45 68 16 98 09/17/23 10:30 69 17 98 09/17/23 10:15 74 19 98 09/17/23 10:00 70 22 09/17/23 09:49 149/83 09/17/23 09:49 74 15 99 09/17/23 09:48 70 99 09/17/23 09:17 79 20 99 09/17/23 09:18 98.4 F 79 20 158/73 99 History of Present Illness History of Present Illness: [facility] Tele[facility]urology Consult [facility] Patient Name:Conchita Villasenor Date of :1940 Identification Number: Date of Service:09/17/2023 09:16:29 Diagnosis:I63.411 - Cerebrovascular accident (CVA) due to embolism of right middle cerebral artery (HCCC) Impression: 83 year old male with evidence of right middle cerebral artery infarct in the past presenting with some left sided weakness and confusion. Differential includes seizure vs. right MCA repeat stroke. Patient without history of stroke per family, but stroke identified in May and was chronic then on CT. CTA head/neck ordered and was poor study, but no obvious LVO identified. Official report pending. At this point, recommend admission for stroke and encephalopathy workup below. Consider seizure evaluation given history of stroke and confusion with some symptoms on the left side, could be Leonard's paralysis with the stroke acting as the seizure focus. Thank you for the consultation. Our recommendations are outlined below. Recommendations: Stroke/Telemetry Floor Neuro Checks Bedside Swallow Eval DVT Prophylaxis IV Fluids, Normal Saline Head of Bed 30 Degrees Euglycemia and Avoid Hyperthermia (PRN Acetaminophen) Initiate or continue Aspirin 81 MG daily Antihypertensives PRN if Blood pressure is greater than 220/120 or there is a concern for End organ damage/contraindications for permissive HTN. If blood pressure is greater than 220/120 give labetalol PO or IV or Vasotec IV with a goal of 15% reduction in BP during the first 24 hours. Sign Out: Discussed with Emergency Department Provider Advanced Imaging: CTA Head and Neck Completed. LVO:No Patient in not a candidate for NEHAL Metrics: Last Known Well: 09/14/2023 22:00:00 [facility] Notification Time: 09/17/2023 09:16:28 Arrival Time: 09/17/2023 09:11:00 Stamp Time: 09/17/2023 09:16:29 Initial Response Time: 09/17/2023 09:19:31Symptoms: Stroke-like Symptoms.. Initial patient interaction: 09/17/2023 09:23:52 NIHSS Assessment Completed: 09/17/2023 09:29:02Patient is not a candidate for Thrombolytic. Thrombolytic Medical Decision: 09/17/2023 09:29:11Patient was not deemed candidate for Thrombolytic because of following reasons: Last Well Known Above 4.5 Hours. I personally Reviewed the CT Head and it Showed evidence of a right frontal stroke that looks chronic and was present on CT from 06/02/23. Primary Provider Notified of Diagnostic Impression and Management Plan on: 09/17/2023 09:46:03 History of Present Illness:Patient is a 83 year old Male. Patient was brought by private transportation with symptoms of Stroke-like Symptoms.. This is an 83 year old male who is presenting with complaints of altered mental status and then in addition to that he is having issues with weakness that is diffuse and has been going on since woke up Friday AM. The patient's family states that noted to have issues on Friday with some confusion as well as troub le with balance/walking. Asked to see him for further evaluation of his symptoms. Past Medical History: Hypertension Hyperlipidemia Atrial Fibrillation Othere PMH: Watchman Device in Place. Medications: No Anticoagulant use Antiplatelet use:YesASA 81 mg daily. Reviewed EMR for current medications Allergies: Reviewed Social History: Smoking: No Family History: There is no family history of premature cerebrovascular disease pertinent to this consultation ROS : 14 Points Review of Systems was performed and was negative except mentioned in HPI. Past Surgical History: There Is No Surgical History Contributory To Todays Visit Examination: BP(140/80),Pulse(74),Blood Glucose(151) 1A: Level of Consciousness - Alert; keenly responsive+ 0 1B: Ask Month and Age - Both Questions Right+ 0 1C: Blink Eyes & Squeeze Hands - Performs Both Tasks+ 0 2: Test Horizontal Extraocular Movements - Normal+ 0 3: Test Visual [place] - No Visual Loss+ 0 4: Test Facial Palsy (Use Grimace if Obtunded) - Minor paralysis (flat nasolabial fold, smile asymmetry)+ 1 5A: Test Left Arm Motor Drift - No Drift for 10 Seconds+ 0 5B: Test Right Arm Motor Drift - No Drift for 10 Seconds+ 0 6A: Test Left Leg Motor Drift - No Drift for 5 Seconds+ 0 6B: Test Right Leg Motor Drift - No Drift for 5 Seconds+ 0 7: Test Limb Ataxia (FNF/Heel-Elena) - Ataxia in 1 Limb+ 1 8: Test Sensation - Normal; No sensory loss+ 0 9: Test Language/Aphasia - Normal; No aphasia+ 0 10: Test Dysarthria - Normal+ 0 11: Test Extinction/Inattention - No abnormality+ 0 NIHSS Score:2 NIHSS Free Text :Hard of Hearing Pre-Morbid Modified [place] Scale:2 Points = Slight disability; unable to carry out all previous activities, but able to look after own affairs without assistance Spoke with :Wing Landry MD (ED Attending) Patient/Family was informed the Neurology Consult would occur via TeleHealth consult by way of interactive audio and video telecommunications and consented to receiving care in this manner. Patient is being evaluated for possible acute neurologic impairment and high probability of imminent or life-threatening deterioration. I spent total of 40 minutes providing care to this patient, including time for face to face visit via telemedicine, review of medical records, imaging studies and discussion of findings with providers, the patient and/or family. Dr Jose Schultz [facility] For Inpatient follow-up with [facility] physician please call [facility] . This is not an outpatient service. Post hospital discharge, please contact hospital directly. Please call or reconsult our service if there are any clinical or diagnostic changes. Medical Decision Making 09/17/23 09:20 09/17/23 09:20 Labs: Laboratory Results - last 24 hr 09/17/23 09/17/23 09/17/23 09:16 09:20 09:55 WBC 5.7 RBC 3.66 L Hgb 11.3 L Hct 34.1 L MCV 93.2 MCH 30.9 MCHC 33.2 RDW 15.3 Plt Count 118 L MPV 8.5 Neut % (Auto) 68.9 Lymph % (Auto) 17.8 L [place] % (Auto) 9.6 Eos % (Auto) 2.5 Baso % (Auto) 1.2 H Neut # (Auto) 4.0 Lymph # (Auto) 1.0 L [place] # (Auto) 0.5 Eos # (Auto) 0.1 Baso # (Auto) 0.1 Absolute Nucleated RBC 0.1 PT 16.2 INR Target Range - INR 1.32 H APTT 34.7 PTT Comment - Fibrinogen 314 Sodium 142 Corrected Sodium 143 Potassium 4.4 Chloride 104 Carbon Dioxide 32.2 H BUN 16 Creatinine 1.49 H Est GFR (MDRD) Af Amer 58 L Est GFR (MDRD) Non-Af 48 L Glucose 142 H POC Glucose (mg/dL) 151 H Calcium 8.8 Corrected Calcium TNP Total Bilirubin 0.60 AST 23 ALT 23 Alkaline Phosphatase 66 Creatine Kinase 102 Troponin I High Sens 24.3 Total Protein 6.5 Albumin 3.6 Globulin 2.9 Albumin/Globulin Ratio 1.2 Triglycerides 45 Cholesterol 106 LDL Cholesterol, Calc 44 HDL Cholesterol 53 Cholesterol/HDL Ratio 2.0 Specimen Type Catherized urine Urine Color Straw Urine Appearance Clear Urine pH 7.0 Ur Specific [place] 1.010 Urine Protein Negative Urine Glucose (UA) Negative Urine Ketones Negative Urine Blood Negative Urine Nitrite Negative Urine Bilirubin Negative Urine Urobilinogen Normal Ur Leukocyte Esterase Negative Urine Opiates Screen Negative Urine Methadone Screen Negative Ur Barbiturates Screen Negative Ur Phencyclidine Scrn Negative Ur Amphetamines Screen Negative U Benzodiazepines Scrn Negative Urine Cocaine Screen Negative U Marijuana (THC) Screen Negative
[2023-09-17] MEDS: NovoLIN R (or HumuLIN R) SC PRN (17:00)
[2023-09-17] MEDS: PATIENT'S HOME MEDICATION PO SCH (18:10)
[2023-09-17] MEDS: FLOMAX PO SCH (20:35)
[2023-09-17] MEDS: XALATAN AFFEYE SCH (20:35)
[2023-09-17] MEDS: ZOCOR TAB 20 MG PO SCH (20:35)
[2023-09-17] MEDS: ENTRESTO 24/26 MG TABLET PO SCH (20:35)
[2023-09-17] MEDS: ALPHAGAN 0.2% OPHTH SOLN AFFEYE SCH (20:35)
[2023-09-17] MEDS: SNACK - Diabetic Appropriate PO SCH (20:35)
[2023-09-18] MEDS: SYNTHROID 100 mcg TAB PO SCH (05:51)
[2023-09-18 06:23] LABS: BASOPHILS # (AUTO) 0.1 X10^3/uL (0.0-0.1); BASOPHILS % (AUTO) 0.7 % (0.2-1.0); EOSINOPHILS # (AUTO) 0.1 x10^3/uL (0.0-0.2); EOSINOPHILS % (AUTO) 1.2 % (0.9-2.9); HEMATOCRIT 34.3 % (42.0-54.0); HEMOGLOBIN 11.3 g/dL (13.5-18.0); LYMPHOCYTES # (AUTO) 1.1 X10^3/uL (1.3-2.9); LYMPHOCYTES % (AUTO) 14.8 % (21.0-51.0); MEAN CORPUSCULAR HEMOGLOBIN 30.9 pg (27.0-34.0); MEAN CORPUSCULAR HGB CONC 33.1 g/dL (33.0-35.0); MEAN CORPUSCULAR VOLUME 93.2 fL (80.0-100.0); MEAN PLATELET VOLUME 9.3 fL (7.4-11.0); MONOCYTES # (AUTO) 0.7 x10^3/uL (0.3-0.8); MONOCYTES % (AUTO) 9.8 % (0.0-13.0); NEUTROPHILS # (AUTO) 5.5 x10^3/uL (2.2-4.8); NEUTROPHILS % (AUTO) 73.5 % (42.0-75.0); PLATELET COUNT 108 X10^3/uL (150.0-450.0); RED BLOOD COUNT 3.67 X10^6/uL (4.7-6.0); RED CELL DISTRIBUTION WIDTH 15.5 % (11.6-16.5); WHITE BLOOD COUNT 7.5 X10^3/uL (3.6-10.0)
[2023-09-18 06:40] LABS: ALANINE AMINOTRANSFERASE 14 Units/L (12-78); ALBUMIN 3.7 g/dL (3.4-5.0); ALKALINE PHOSPHATASE 67 Units/L (46-116); ASPARTATE AMINO TRANSFERASE 20 Units/L (15-37); BLOOD UREA NITROGEN 19 mg/dL (7-18); CALCIUM 8.6 mg/dL (8.5-10.1); CARBON DIOXIDE 26.7 mmol/L (21-32); CHLORIDE 104 mmol/L (98-107); COR NA(FOR HYPERGLY) 144 mmol/L (136-145); CREATININE 1.45 mg/dL (0.70-1.30); GLUCOSE 225 mg/dL (65-99); POTASSIUM 3.9 mmol/L (3.5-5.1); SODIUM 141 mmol/L (136-145); TOTAL PROTEIN 6.6 g/dL (6.4-8.2); eGFR NON BLACK RACES 49 (>60)
[2023-09-18] MEDS ORDERED: TOPROL XL PO ONE (08:05)
[2023-09-18] MEDS: ASPIRIN EC 81 MG PO SCH (08:36)
[2023-09-18] MEDS: CORDARONE TAB 200 MG PO SCH (08:36)
[2023-09-18] MEDS: ACTOS PO SCH (08:36)
[2023-09-18] MEDS: TOPROL XL PO SCH (08:36)
[2023-09-18] MEDS: JANUVIA PO SCH (08:37)
[2023-09-18] MEDS: LASIX PO SCH (08:37)
[2023-09-18] MEDS: VITAMIN D3 25 mcg (1,000 UNITS) PO SCH (08:37)
[2023-09-18 09:05] VITALS: PULSE 79; RESP 20; TEMP 97.9
--- NOTE | 2023-09-18 10:16 | CT ---
EXAM:BRAIN W/O CONHISTORY:TIA, FOLLOW UP CT YESTERDAYCOMPARISON:09/17/2023.TECHNIQUE: vertex without administration of IV contrast. Dose reduction techniques including Automated Exposure Control (AEC) and adjustment of mA and kV were utilized.FINDINGS:There are scattered areas of periventricular and subcortical white matter hypoattenuation bilaterally which can be seen in the setting of chronic small vessel disease. There are old infarcts involving the frontal and parieto-occipital regions on the right. No acute intraparenchymal hemorrhage or mass can be identified. No extra-axial fluid collections are seen. No alteration in the attenuation of the brain parenchyma can be identified to suggest acute or subacute ischemic change. The extracranial structures are grossly unremarkable.IMPRESSION:No acute intracranial abnormality or concerning change compared with the previous day.THIS IS AN ELECTRONICALLY VERIFIED FINAL REPORT09/18/2023 10:13 AM - Electronically signed by Ian Wang MD
--- NOTE | 2023-09-18 12:42 | DR.SSS ---
SHORT STAY SUMMARY Admission Date Date of Admission: 09/17/23 Discharge Date Discharge Date: 09/18/23 Admission Diagnoses Admission Diagnoses: Transient ischemic attack Confusion Discharge Diagnoses Discharge Diagnoses: Transient ischemic attack Confusion Chief Complaint Chief Complaint: confusion History of Present Illness History of Present Illness: Patient is a 83-year-old male presenting to the ER after family noted he was " acting confused" and not himself. No focal deficits were noted. Tele-neurology was consulted, CTA of the head and CT did not reveal any acute intracranial findings or LVO. Patient was not a candidate for thrombolytic treatment. MRI could not be obtained because patient does have a Watchman device. Repeat CT in the morning did not reveal any acute intracranial findings. Patient appears to also be back at his baseline. Labs: WBC 7.5, hemoglobin 11.3, platelets 108, sodium 141, potassium 3.9, creatinine 1.45, glucose 225, troponin negative, UA and toxicology negative. Chest x-ray reveal ed no cardiopulmonary findings. Patient appears to be stable and back at baseline. He will be discharged in stable condition, continue home medications, and instructed to follow-up with his PCP in 1 week. Past Medical History Past Medical History: Coronary Artery Disease, Diabetes, Dyslipidemia, Hypertension, Hypothyroidism, IA and Renal Disease Past Surgical History Surgical History: CABG/Valve Surgery Allergies Allergies Allergy/AdvReac Type Severity Reaction Status Date / Time codeine Allergy Verified 09/17/23 09:16 lidocaine Allergy Verified 09/17/23 09:16 Medications Home Medications: codeine Allergy (Verified 09/17/23 09:16) lidocaine Allergy (Verified 09/17/23 09:16) Family History Family Medical History: Diabetes Mellitus and Cancer Social History Does patient currently use any type of tobacco product: No Have you used tobacco products in the last 12 months: No Type of Tobacco Use: None Does any household member use tobacco: No Alcohol Use: None Drug Use: None Review of Systems Constitutional: No Symptoms Reported Eyes: No Symptoms Reported ENT: No Symptoms Reported Respiratory: No Symptoms Reported Cardiovascular: No Symptoms Reported Gastrointestinal: No Symptoms Reported Musculoskeletal: No Symptoms Reported Skin: No Symptoms Reported Neurological: Confusion Physical Exam Vital Signs: Last Vital Signs Temp 97.9 F 09/18/23 08:00 Pulse 79 09/18/23 08:00 Resp 20 09/18/23 08:00 BP 166/80 09/18/23 08:00 Pulse Ox 98 03/07/24 08:00 O2 Del Method Room Air 09/18/23 08:00 Oriented: Person and Place Eyes: Normal Ear: Normal Nose: Normal Throat: Normal Respiratory: Clear Throughout Cardiovascular: Normal Auscultation: Bowel Sounds: Normal Palpation: Normal Tenderness: Normal Skin: Normal Musculoskeletal: Normal Psychiatric: Normal Speech Pattern: Clear Labs Labs: Laboratory Last Values WBC 7.5 X10^3/uL (3.6-10.0) 09/18/23 05:15 RBC 3.67 X10^6/uL (4.7-6.0) L 09/18/23 05:15 Hgb 11.3 g/dL (13.5-18.0) L 09/18/23 05:15 Hct 34.3 % (42.0-54.0) L 09/18/23 05:15 MCV 93.2 fL (80.0-100.0) 09/18/23 05:15 MCH 30.9 pg (27.0-34.0) 09/18/23 05:15 MCHC 33.1 g/dL (33.0-35.0) 09/18/23 05:15 RDW 15.5 % (11.6-16.5) 09/18/23 05:15 Plt Count 108 X10^3/uL (150.0-450.0) L 09/18/23 05:15 MPV 9.3 fL (7.4-11.0) 09/18/23 05:15 Neut % (Auto) 73.5 % (42.0-75.0) 09/18/23 05:15 Lymph % (Auto) 14.8 % (21.0-51.0) L 09/18/23 05:15 [place] % (Auto) 9.8 % (0.0-13.0) 09/18/23 05:15 Eos % (Auto) 1.2 % (0.9-2.9) 09/18/23 05:15 Baso % (Auto) 0.7 % (0.2-1.0) 09/18/23 05:15 Neut # (Auto) 5.5 x10^3/uL (2.2-4.8) H 09/18/23 05:15 Lymph # (Auto) 1.1 X10^3/uL (1.3-2.9) L 09/18/23 05:15 [place] # (Auto) 0.7 x10^3/uL (0.3-0.8) 09/18/23 05:15 Eos # (Auto) 0.1 x10^3/uL (0.0-0.2) 09/18/23 05:15 Baso # (Auto) 0.1 X10^3/uL (0.0-0.1) 09/18/23 05:15 Absolute Nucleated RBC 0.2 /100WBC 09/18/23 05:15 PT 16.2 SECONDS (11.8-14.3) 09/17/23 09:20 INR Target Range - 09/17/23 09:20 INR 1.32 (0.8-1.3) H 09/17/23 09:20 APTT 34.7 SECONDS (22.9-36.5) 09/17/23 09:20 PTT Comment - 09/17/23 09:20 Fibrinogen 314 mg/dL (239-489) 09/17/23 09:20 Sodium 141 mmol/L (136-145) 09/18/23 05:15 Corrected Sodium 144 mmol/L (136-145) 09/18/23 05:15 Potassium 3.9 mmol/L (3.5-5.1) 09/18/23 05:15 Chloride 104 mmol/L (98-107) 09/18/23 05:15 Carbon Dioxide 26.7 mmol/L (21-32) 09/18/23 05:15 BUN 19 mg/dL (7-18) H 09/18/23 05:15 Creatinine 1.45 mg/dL (0.70-1.30) H 09/18/23 05:15 Est GFR (MDRD) Af Amer 59 (>60) 09/18/23 05:15 Est GFR (MDRD) Non-Af 49 (>60) L 09/18/23 05:15 Glucose 225 mg/dL (65-99) H 09/18/23 05:15 POC Glucose (mg/dL) 221 mg/dL (65-99) H 09/18/23 05:38 Calcium 8.6 mg/dL (8.5-10.1) 09/18/23 05:15 Corrected Calcium TNP 09/18/23 05:15 Total Bilirubin 0.60 mg/dL (0.2-1.0) 09/18/23 05:15 AST 20 Units/L (15-37) 09/18/23 05:15 ALT 14 Units/L (12-78) 09/18/23 05:15 Alkaline Phosphatase 67 Units/L (46-116) 09/18/23 05:15 Creatine Kinase 78 Units/L (39-308) 09/17/23 21:50 Troponin I High Sens 25.8 ng/L (4.0-60.0) 09/17/23 21:50 Total Protein 6.6 g/dL (6.4-8.2) 09/18/23 05:15 Albumin 3.7 g/dL (3.4-5.0) 09/18/23 05:15 Globulin 2.9 g/dL (2.5-4.5) 09/18/23 05:15 Albumin/Globulin Ratio 1.3 Ratio (1.1-2.1) 09/18/23 05:15 Triglycerides 45 mg/dL (0-150) 09/17/23 09:20 Cholesterol 106 mg/dL (0-200) 09/17/23 09:20 LDL Cholesterol, Calc 44 mg/dL (0-100) 09/17/23 09:20 HDL Cholesterol 53 mg/dL (40-60) 09/17/23 09:20 Cholesterol/HDL Ratio 2.0 (0.0-5.0) 09/17/23 09:20 Specimen Type Catherized urine 09/17/23 09:55 Urine Color Straw (YELLOW) 09/17/23 09:55 Urine Appearance Clear (CLEAR) 09/17/23 09:55 Urine pH 7.0 (5.0 - 8.0) 09/17/23 09:55 Ur Specific [place] 1.010 (1.000-1.030) 09/17/23 09:55 Urine Protein Negative (NEGATIVE) 09/17/23 09:55 Urine Glucose (UA) Negative (NEGATIVE) 09/17/23 09:55 Urine Ketones Negative (NEGATIVE) 09/17/23 09:55 Urine Blood Negative (NEGATIVE) 09/17/23 09:55 Urine Nitrite Negative (NEGATIVE) 09/17/23 09:55 Urine Bilirubin Negative (NEGATIVE) 09/17/23 09:55 Urine Urobilinogen Normal (NORMAL) 09/17/23 09:55 Ur Leukocyte Esterase Negative (NEGATIVE) 09/17/23 09:55 Urine Opiates Screen Negative (NEG=<300) 09/17/23 09:55 Urine Methadone Screen Negative (NEG=<300) 09/17/23 09:55 Ur Barbiturates Screen Negative (NEG=<200) 09/17/23 09:55 Ur Phencyclidine Scrn Negative (NEG=<25) 09/17/23 09:55 Ur Amphetamines Screen Negative (NEG=<1000) 09/17/23 09:55 U Benzodiazepines Scrn Negative (NEG=<200) 09/17/23 09:55 Urine Cocaine Screen Negative (NEG=<300) 09/17/23 09:55 U Marijuana (THC) Screen Negative (NEG=<50) 09/17/23 09:55 Assessment/Plan (1) TIA (transient ischemic attack): (2) Generalized weakness: Hospital Course Hospital Course: Patient is a 83-year-old male presenting to the ER after family noted he was " acting confused" and not himself. No focal deficits were noted. Tele-neurology was consulted, CTA of the head and CT did not reveal any acute intracranial findings or LVO. Patient was not a candidate for thrombolytic treatment. MRI could not be obtained because patient does have a Watchman device. Repeat CT in the morning did not reveal any acute intracranial findings. Patient appears to also be back at his baseline. Labs: WBC 7.5, hemoglobin 11.3, platelets 108, sodium 141, potassium 3.9, creatinine 1.45, glucose 225, troponin negative, UA and toxicology negative. Chest x-ray revealed no cardiopulmonary findings. Patient appears to be stable and back at baseline. He will be discharged in stable condition, continue home medications, and instructed to follow-up with his PCP in 1 week. Discharge Medications Discharge Medications: Prescriptions: Discharge Plan Discharge Plan Patient Disposition: HOME HEALTH SERVICE Condition: Stable Health Concerns: Post Hospitalization: new medications and changes needed to prevent readmission or further decline. Pt educated and given instructions on all concerns. Care Plan Goals: Problem: Alteration in Mental Status Goal: Patient will stay oriented to their cognitive ability Instructions: Follow provided instructions. Follow up with primary physician as directed. Contact primary care physician or report to the closest Emergency Room if condition worsens. Plan of Treatment: Continue with present treatment and follow up plan. Pt is to keep follow up appointment as instructed and take medications as ordered. Assessment: No distress noted at discharge. Prescriptions: No Action metoprolol succinate 100 mg tablet extended release 24 hr 100 mg PO QDAY 90 Days Qty: 90 3RF Rx Instructions: take after breakfast latanoprost 0.005 % drops 1 drp ophthalmic (eye) QPM Rx Instructions: take at bedtime aspirin 81 mg tablet,delayed release (DR/EC) 81 mg PO QDAY Rx Instructions: before breakfast repaglinide 1 mg tablet 1 mg PO TID Rx Instructions: take before breakfast, before supper and at bedtime Januvia 50 mg tablet 50 mg PO QDAY Rx Instructions: take after breakfast pioglitazone 15 mg tablet 15 mg PO QDAY Rx Instructions: take after breakfast brimonidine 0.2 % drops 1 drp ophthalmic (eye) BID Patient Comments: [NO ORIGINAL SIG] Rx Instructions: after breakfast and at bedtime insulin lispro protamin-lispro [Humalog Mix 75-25 KwikPen] 100 unit/mL (75-25) insulin pen See Rx Instructions .ROUTE .COMPLEX Patient Comments: INJECT 7 UNITS UNDER THE SKIN WITH BREAKFAST AND 5 UNITS UNDER THE SKIN WITH DINNER Rx Instructions: 7 units sq daily after breakfast and 5 units sq at bedtime daily cholecalciferol (vitamin D3) 25 mcg (1,000 unit) tablet 25 mcg PO QDAY Rx Instructions: take before lunch furosemide [Lasix] 20 mg tablet 20 mg PO QAM Qty: 90 3RF Rx Instructions: take before breakfast amiodarone 200 mg tablet 200 mg PO QDAY Qty: 90 3RF Rx Instructions: take before breakfast levothyroxine [Levoxyl] 100 MCG tablet 100 mcg PO DAILY Rx Instructions: take before breakfast tamsulosin 0.4 MG capsule,extended release 24hr 0.4 mg PO DAILY Rx Instructions: take after supper simvastatin 20 MG tablet 20 mg PO HS Rx Instructions: take after supper Entresto 24-26 mg tablet 1 tab PO BID Rx Instructions: take before breakfast and at bedtime Follow ups/Referrals Follow ups/Referrals: FLACO NEVAREZ [STAFF PHYSICIAN] - 09/18/23 12:30 pm (Referral made at discharge.) NORMAN LEIGH [Primary Care Provider] - 09/25/23 9:45 am Instructions Instructions: Heart Failure, Self-Care, Transient Ischemic Attack, [id number], Weakness, [id number] Stand Alone Forms: [facility]
[2023-09-18 14:11] VITALS: BP 186/80; O2SAT 97
== END 2023-09-18 12:35 | disposition home health service (06) ==
LOC: ER 09:11 → MED/SURG 09:11
PROVIDERS: ADMIT Internal Medicine; ATTEND Internal Medicine
DX: R94.31 Abnormal electrocardiogram [ECG] [EKG]; G45.8 Other transient cerebral ischemic attacks and related syndromes; I25.10 Atherosclerotic heart disease of native coronary artery without angina pectoris; R79.1 Abnormal coagulation profile; E11.65 Type 2 diabetes mellitus with hyperglycemia; Z79.899 Other long term (current) drug therapy; R53.1 Weakness; Z86.73 Personal history of transient ischemic attack (TIA), and cerebral infarction without residual deficits; R41.0 Disorientation, unspecified